=== PATIENT | female | born 1965 | race Caucasian/White ===

== ENCOUNTER 2016-09-02 17:46 | Emergency (ER) | payer OTHER ==
--- NOTE | 2016-09-02 18:43 | DIAGNOSTIC IMAGING REPORT ---
PROCEDURE: XR HAND 3 OR 4 VIEWS - RIGHT INDICATION: TRAUMA/INJURY TECHNIQUE: Four views. COMPARISON: None. FINDINGS: Bandages obscures some of the detail. Allowing for this, osseous structures and joint spaces are normal. IMPRESSION: 1. Negative right hand.
--- NOTE | 2016-09-02 22:34 | ED NURSING NOTES ---
Clinical Report - Nurses [facility] [address] [place] [address] 09/02/2016 17:48 Patient: JYOTI AZUL TRIAGE Acuity: LEVEL 3. Chief Complaint: INJURY TO RIGHT HAND. Alert. No acute distress. SEPSIS SCREEN: Sepsis Screen. Negative (no infection suspected/documented). --17:55 Francesca Napoles R.N. 17:51 09/02/16. BP: 184/106. HR: 64. RR: 24. O2 saturation: 97% on room air. Temp: 97.8 F. Pain level now: 03/26. --17:55 Francesca Napoles R.N. Weight: 58.9 kg stated. Height/Length: 64 inches Per Patient. BMI: 22.3. --17:53 Francesca Napoles R.N. Medications Gabapentin Oral. --17:51 Francesca Napoles R.N. Medication/allergy information source: the patient. --17:55 Francesca Napoles R.N. Allergies Sulfa Antibiotics. --17:51 Francesca Napoles R.N. Red Dye. --17:51 Francesca Napoles R.N. History Arrived by private vehicle. Historian: patient. Accompanied by spouse. This occurred just prior to arrival. Occurred at home. She sustained a laceration (chain saw). Treatment THREAD SINGER: None. PAST MEDICAL HX: Tetanus status: unknown. Immunizations: up-to-date. The patient has had a hysterectomy. SOCIAL HX: Never smoker. Regular alcohol use. No drug use. FALL RISK ASSESSMENT: Fall risk assessment completed. No fall risk identified. NUTRITIONAL RISK ASSESSMENT: The nutritional risk assessment revealed no deficiencies. FUNCTIONAL ASSESSMENT: Functional assessment: no impairments noted. LEARNING NEEDS ASSESSMENT: The learning needs assessment revealed no barriers. SKIN INTEGRITY ASSESSMENT: Skin integrity risk assessment completed. No skin integrity risk identified. --17:55 Francesca Napoles R.N. PROBLEMS: Hypertension. --17:52 Winterer, Francesca, R.N. Assessment GENERAL / NEURO / PSYCH: Alert. Oriented X 4. Appears in no acute distress. Appears in pain and anxious. [place] Coma Scale: 15- eyes open spontaneously (4); best verbal response- oriented x 4 (5); best motor response- obeys commands (6). Patient appears calm and cooperative. RESPIRATORY: Respirations not labored. CVS: Capillary refill less than 2 seconds. GI / : Abdomen soft and nontender. SKIN: Mucous membranes are pink. Skin is warm and dry. --17:55 Francesca Napoles R.N. Interventions ID band on patient. To treatment room. --17:55 Francesca Napoles R.N. PHYSICAL ASSESSMENT 17:56 09/02/16. Ambulatory to room. GENERAL / NEURO / PSYCH: Oriented X 4. Alert. Appears in no acute distress. Appears in pain. EXTREMITIES: Right hand: deep laceration with bleeding localized to the dorsal aspect of the hand. SKIN: Skin is warm and dry. --17:56 Francesca Napoles R.N. NURSING PROGRESS NOTES 17:56 09/02/16. Two patient identifiers checked. Call light placed in reach. Side rails up x 1. Bed placed in lowest position. Brakes of bed on. Patient ready for evaluation- chart flagged and GASOLINE LOCOMOTIVE CRANE OPERATOR notified. --17:56 Francesca Napoles R.N. 18:00 09/02/2016 Site #1 started via IV in the left wrist with an 20g angiocath, with aseptic technique and good blood return; one attempt. Saline lock flushed with 10 mL saline. --18:00 Francesca Napoles R.N. 18:00 09/02/2016 Started bag #1 1000 mL IV Fluids IV NS (Saline); at 1000 mL/hr over 1 hour(s) via site #1 via IV pump. Allergies verified and confirmed 5 rights. IV patency established. IV site checked: no pain, redness, or swelling. IV flushed thoroughly pre- and post-medication administration. --18:00 Francesca Napoles R.N. 18:09/02/2016 Zofran (Ondansetron HCl) IVP 4 mg given over 1 minute(s) via site #1. Allergies verified and confirmed 5 rights. IV patency established. IV site checked: no pain, redness, or swelling. IV flushed thoroughly pre- and post-medication administration. IVP given by RN. --18: Francesca Napoles R.N. 18:09/02/2016 Dilaudid (HYDROmorphone HCl PF) IVP 2 mg given over 2 minute(s) via site #1. Allergies verified, confirmed 5 rights and sedative warning given to the patient. IV patency established. IV site checked: no pain, redness, or swelling. IV flushed thoroughly pre- and post-medication administration. IVP given by RN. --18: Francesca Napoles R.N. 18:22 09/02/2016 TDAP IM 0.5 mL given. (Lot#: [id number], expiration date: 03/24/2018). Given in the left deltoid. Allergies verified and confirmed 5 rights. Vaccine information statement provided to the patient. --18:22 Francesca Napoles R.N. 18:23 09/02/16. field service technician at the patient's bedside. --18:23 Francesca Napoles R.N. 18:35 09/02/2016 Started 1 gm of Ancef (CeFAZolin Sodium) IVPB in bag #1 100 mL; at 150 mL/hr over 20 minute(s) via site #1; Confirmed 5 rights. --18:35 Carmela Ramos R.N. ( Face sheet faxed to [employer]. Imagines pushed to [employer] --18:38 Aura Gil ER Tech1 18:42 09/02/2016 Started 1 gm of Ancef (CeFAZolin Sodium) IVPB in bag #2 100 mL; at 150 mL/hr over 20 minute(s) via site #1; Confirmed 5 rights. --18:42 Carmela Ramos R.N. 18:42 09/02/2016 Ancef IVPB Discontinued: completed. Total amount infused: 100 mL. IV patency established. IV site checked: no pain, redness, or swelling. IV flushed thoroughly. --18:42 Carmela Ramos R.N. 18:57 09/02/2016 Started 3 gm of Unasyn (Ampicillin-Sulbactam Sodium) IVPB in bag #1 100 mL; at 324 mL/hr over 20 minute(s) via site #1 via IV pump. Allergies verified and confirmed 5 rights. IV patency established. IV site checked: no pain, redness, or swelling. IV flushed thoroughly pre- and post-medication administration. --18:57 Francesca Napoles R.N. 18:57 09/02/2016 Ancef IVPB Discontinued: bag #2 infused. Total amount infused: 100 mL. IV patency established. IV site checked: no pain, redness, or swelling. IV flushed thoroughly. --18:57 Francesca Napoles R.N. 18:58 09/02/16. BP: 130/92. HR: 78. RR: 16. O2 saturation: 95% on room air. --18:58 Francesca Napoles R.N. 19:21 09/02/2016 Unasyn IVPB Discontinued: bag #1 infused. Total amount infused: 100 mL. IV patency established. IV site checked: no pain, redness, or swelling. IV flushed thoroughly. --19:21 Francesca Napoles R.N. 19:22 09/02/2016 Started 900 mg of Clindamycin IVPB in bag #1 50 mL; at 100 mL/hr over 30 minute(s) via site #1 via IV pump. Allergies verified and confirmed 5 rights. IV patency established. IV site checked: no pain, redness, or swelling. IV flushed thoroughly pre- and post-medication administration. --19:22 Francesca Napoles R.N. 19:09/02/16. Wound cleansed with sterile water (hand cleaned with water and hibiclens. Wound irrigated with sterile water). Applied clean wet-to-dry (moistened with saline) dressing. Secured with kerlix. --19:31 Francesca Napoles R.N. 20:57 09/02/16. BP: 167/91. HR: 81. RR: 16. O2 saturation: 97% on room air. Pain level now: 12/24. --20:58 Francesca Napoles R.N. 20:58 09/02/16. Family at bedside. --20:58 Francesca Napoles R.N. 22:12 09/02/16. BP: 126/95. HR: 88. RR: 16. O2 saturation: 98%. --22:13 Francesca Napoles R.N. 22:13 09/02/16. The patient is calm and resting quietly and has had no adverse reaction. Overall patient status- she states feels better. --22:13 Francesca Napoles R.N. late entry - 23:00. Applied clean bulky dressing consisting of adaptic and 4x4 gauze, following the application of antibiotic ointment (bacitracin). Secured with tape and kerlix. --23:29 Francesca Napoles R.N. 19:00 09/02/2016 IV Fluids IV NS Discontinued: bag #1 infused. Total amount infused: 1000 mL. IV patency established. IV site checked: no pain, redness, or swelling. IV flushed thoroughly. --23:30 Francesca Napoles R.N. 19:55 09/02/2016 Clindamycin IVPB Discontinued: bag #1 infused. Total amount infused: 50 mL. IV patency established. IV site checked: no pain, redness, or swelling. IV flushed thoroughly. --23:33 Francesca Napoles R.N. 20:15 09/02/2016 Dilaudid (HYDROmorphone HCl PF) IVP 1 mg given over 1 minute(s) via site #1. Allergies verified, confirmed 5 rights and sedative warning given to the patient. IV patency established. IV site checked: no pain, redness, or swelling. IV flushed thoroughly pre- and post-medication administration. IVP given by GASOLINE LOCOMOTIVE CRANE OPERATOR (per VO from GASOLINE LOCOMOTIVE CRANE OPERATOR). --23:32 Francesca Napoles R.N. 22:50 09/02/2016 Dilaudid (HYDROmorphone HCl PF) IVP 1 mg given over 1 minute(s) via site #1. Allergies verified, confirmed 5 rights and sedative warning given to the patient. IV patency established. IV site checked: no pain, redness, or swelling. IV flushed thoroughly pre- and post-medication administration. IVP given by RN (per VO from GASOLINE LOCOMOTIVE CRANE OPERATOR). --23:33 Francesca Napoles R.N. 23:09 09/02/2016 Site #1 removed upon discharge. Catheter intact. Manual pressure and bandage applied. --23:34 Francesca Napoles R.N. DISPOSITION / DISCHARGE Departure time: 23:05 Sep 02 2016. Condition at departure: improved and stable. No learning barriers present. Reviewed medication(s) side effects, precautions, dosing and course information. Prescription(s) given to the patient. Reviewed wound care instructions. Follow up contact number. Patient and spouse verbalized understanding. Written instructions provided in Telugu. The patient was discharged by the nurse practitioner. She was discharged home and accompanied by spouse. She left the Emergency Department ambulatory and via private vehicle. Spouse driving. --23:28 Francesca Napoles R.N. 23:27 09/02/16. BP: 155/76. HR: 90. RR: 18. O2 saturation: 95% on room air. Temp: 98.7 F (oral). Pain level now: 5/10. --23:28 Francesca Napoles R.N. Locked/Released at 09/02/2016 23:35 by Francesca Napoles R.N.
--- NOTE | 2016-09-02 22:34 | ED NURSING NOTES ---
Clinical Report - Nurses [facility] [address] [place] [address] 09/02/2016 17:48 Patient: JYOTI AZUL TRIAGE Acuity: LEVEL 3. Chief Complaint: INJURY TO RIGHT HAND. Alert. No acute distress. SEPSIS SCREEN: Sepsis Screen. Negative (no infection suspected/documented). --17:55 Francesca Napoles R.N. 17:51 09/02/16. BP: 184/106. HR: 64. RR: 24. O2 saturation: 97% on room air. Temp: 97.8 F. Pain level now: 03/26. --17:55 Francesca Napoles R.N. Weight: 58.9 kg stated. Height/Length: 64 inches Per Patient. BMI: 22.3. --17:53 Francesca Napoles R.N. Medications Gabapentin Oral. --17:51 Francesca Napoles R.N. Medication/allergy information source: the patient. --17:55 Francesca Napoles R.N. Allergies Sulfa Antibiotics. --17:51 Francesca Napoles R.N. Red Dye. --17:51 Francesca Napoles R.N. History Arrived by private vehicle. Historian: patient. Accompanied by spouse. This occurred just prior to arrival. Occurred at home. She sustained a laceration (chain saw). Treatment [employer]: None. PAST MEDICAL HX: Tetanus status: unknown. Immunizations: up-to-date. The patient has had a hysterectomy. SOCIAL HX: Never smoker. Regular alcohol use. No drug use. FALL RISK ASSESSMENT: Fall risk assessment completed. No fall risk identified. NUTRITIONAL RISK ASSESSMENT: The nutritional risk assessment revealed no deficiencies. FUNCTIONAL ASSESSMENT: Functional assessment: no impairments noted. LEARNING NEEDS ASSESSMENT: The learning needs assessment revealed no barriers. SKIN INTEGRITY ASSESSMENT: Skin integrity risk assessment completed. No skin integrity risk identified. --17:55 Francesca Napoles R.N. PROBLEMS: Hypertension. --17:52 Winterer, Francesca, R.N. Assessment GENERAL / NEURO / PSYCH: Alert. Oriented X 4. Appears in no acute distress. Appears in pain and anxious. [place] Coma Scale: 15- eyes open spontaneously (4); best verbal response- oriented x 4 (5); best motor response- obeys commands (6). Patient appears calm and cooperative. RESPIRATORY: Respirations not labored. CVS: Capillary refill less than 2 seconds. GI / : Abdomen soft and nontender. SKIN: Mucous membranes are pink. Skin is warm and dry. --17:55 Francesca Napoles R.N. Interventions ID band on patient. To treatment room. --17:55 Francesca Napoles R.N. PHYSICAL ASSESSMENT 17:56 09/02/16. Ambulatory to room. GENERAL / NEURO / PSYCH: Oriented X 4. Alert. Appears in no acute distress. Appears in pain. EXTREMITIES: Right hand: deep laceration with bleeding localized to the dorsal aspect of the hand. SKIN: Skin is warm and dry. --17:56 Francesca Napoles R.N. NURSING PROGRESS NOTES 17:56 09/02/16. Two patient identifiers checked. Call light placed in reach. Side rails up x 1. Bed placed in lowest position. Brakes of bed on. Patient ready for evaluation- chart flagged and MANAGER STORY notified. --17:56 Francesca Napoles R.N. 18:00 09/02/2016 Site #1 started via IV in the left wrist with an 20g angiocath, with aseptic technique and good blood return; one attempt. Saline lock flushed with 10 mL saline. --18:00 Francesca Napoles R.N. 18:00 09/02/2016 Started bag #1 1000 mL IV Fluids IV NS (Saline); at 1000 mL/hr over 1 hour(s) via site #1 via IV pump. Allergies verified and confirmed 5 rights. IV patency established. IV site checked: no pain, redness, or swelling. IV flushed thoroughly pre- and post-medication administration. --18:00 Francesca Napoles R.N. 18:09/02/2016 Zofran (Ondansetron HCl) IVP 4 mg given over 1 minute(s) via site #1. Allergies verified and confirmed 5 rights. IV patency established. IV site checked: no pain, redness, or swelling. IV flushed thoroughly pre- and post-medication administration. IVP given by RN. --18: Francesca Napoles R.N. 18:09/02/2016 Dilaudid (HYDROmorphone HCl PF) IVP 2 mg given over 2 minute(s) via site #1. Allergies verified, confirmed 5 rights and sedative warning given to the patient. IV patency established. IV site checked: no pain, redness, or swelling. IV flushed thoroughly pre- and post-medication administration. IVP given by RN. --18: Francesca Napoles R.N. 18:22 09/02/2016 TDAP IM 0.5 mL given. (Lot#: [id number], expiration date: 03/24/2018). Given in the left deltoid. Allergies verified and confirmed 5 rights. Vaccine information statement provided to the patient. --18:22 Francesca Napoles R.N. 18:23 09/02/16. cytotechnologist at the patient's bedside. --18:23 Francesca Napoles R.N. 18:35 09/02/2016 Started 1 gm of Ancef (CeFAZolin Sodium) IVPB in bag #1 100 mL; at 150 mL/hr over 20 minute(s) via site #1; Confirmed 5 rights. --18:35 Carmela Ramos R.N. ( Face sheet faxed to [employer]. Imagines pushed to [employer] --18:38 Aura Gil ER Tech1 18:42 09/02/2016 Started 1 gm of Ancef (CeFAZolin Sodium) IVPB in bag #2 100 mL; at 150 mL/hr over 20 minute(s) via site #1; Confirmed 5 rights. --18:42 Carmela Ramos R.N. 18:42 09/02/2016 Ancef IVPB Discontinued: completed. Total amount infused: 100 mL. IV patency established. IV site checked: no pain, redness, or swelling. IV flushed thoroughly. --18:42 Carmela Ramos R.N. 18:57 09/02/2016 Started 3 gm of Unasyn (Ampicillin-Sulbactam Sodium) IVPB in bag #1 100 mL; at 324 mL/hr over 20 minute(s) via site #1 via IV pump. Allergies verified and confirmed 5 rights. IV patency established. IV site checked: no pain, redness, or swelling. IV flushed thoroughly pre- and post-medication administration. --18:57 Francesca Napoles R.N. 18:57 09/02/2016 Ancef IVPB Discontinued: bag #2 infused. Total amount infused: 100 mL. IV patency established. IV site checked: no pain, redness, or swelling. IV flushed thoroughly. --18:57 Francesca Napoles R.N. 18:58 09/02/16. BP: 130/92. HR: 78. RR: 16. O2 saturation: 95% on room air. --18:58 Francesca Napoles R.N. 19:21 09/02/2016 Unasyn IVPB Discontinued: bag #1 infused. Total amount infused: 100 mL. IV patency established. IV site checked: no pain, redness, or swelling. IV flushed thoroughly. --19:21 Francesca Napoles R.N. 19:22 09/02/2016 Started 900 mg of Clindamycin IVPB in bag #1 50 mL; at 100 mL/hr over 30 minute(s) via site #1 via IV pump. Allergies verified and confirmed 5 rights. IV patency established. IV site checked: no pain, redness, or swelling. IV flushed thoroughly pre- and post-medication administration. --19:22 Francesca Napoles R.N. 19:09/02/16. Wound cleansed with sterile water (hand cleaned with water and hibiclens. Wound irrigated with sterile water). Applied clean wet-to-dry (moistened with saline) dressing. Secured with kerlix. --19:31 Francesca Napoles R.N. 20:57 09/02/16. BP: 167/91. HR: 81. RR: 16. O2 saturation: 97% on room air. Pain level now: 12/24. --20:58 Francesca Napoles R.N. 20:58 09/02/16. Family at bedside. --20:58 Francesca Napoles R.N. 22:12 09/02/16. BP: 126/95. HR: 88. RR: 16. O2 saturation: 98%. --22:13 Francesca Napoles R.N. 22:13 09/02/16. The patient is calm and resting quietly and has had no adverse reaction. Overall patient status- she states feels better. --22:13 Francesca Napoles R.N. late entry - 23:00. Applied clean bulky dressing consisting of adaptic and 4x4 gauze, following the application of antibiotic ointment (bacitracin). Secured with tape and kerlix. --23:29 Francesca Napoles R.N. 19:00 09/02/2016 IV Fluids IV NS Discontinued: bag #1 infused. Total amount infused: 1000 mL. IV patency established. IV site checked: no pain, redness, or swelling. IV flushed thoroughly. --23:30 Francesca Napoles R.N. 19:55 09/02/2016 Clindamycin IVPB Discontinued: bag #1 infused. Total amount infused: 50 mL. IV patency established. IV site checked: no pain, redness, or swelling. IV flushed thoroughly. --23:33 Francesca Napoles R.N. 20:15 09/02/2016 Dilaudid (HYDROmorphone HCl PF) IVP 1 mg given over 1 minute(s) via site #1. Allergies verified, confirmed 5 rights and sedative warning given to the patient. IV patency established. IV site checked: no pain, redness, or swelling. IV flushed thoroughly pre- and post-medication administration. IVP given by MANAGER STORY (per VO from MANAGER STORY). --23:32 Francesca Napoles R.N. 22:50 09/02/2016 Dilaudid (HYDROmorphone HCl PF) IVP 1 mg given over 1 minute(s) via site #1. Allergies verified, confirmed 5 rights and sedative warning given to the patient. IV patency established. IV site checked: no pain, redness, or swelling. IV flushed thoroughly pre- and post-medication administration. IVP given by RN (per VO from MANAGER STORY). --23:33 Francesca Napoles R.N. 23:09 09/02/2016 Site #1 removed upon discharge. Catheter intact. Manual pressure and bandage applied. --23:34 Francesca Napoles R.N. DISPOSITION / DISCHARGE Departure time: 23:05 Sep 02 2016. Condition at departure: improved and stable. No learning barriers present. Reviewed medication(s) side effects, precautions, dosing and course information. Prescription(s) given to the patient. Reviewed wound care instructions. Follow up contact number. Patient and spouse verbalized understanding. Written instructions provided in Latvian. The patient was discharged by the nurse practitioner. She was discharged home and accompanied by spouse. She left the Emergency Department ambulatory and via private vehicle. Spouse driving. --23:28 Francesca Napoles R.N. 23:27 09/02/16. BP: 155/76. HR: 90. RR: 18. O2 saturation: 95% on room air. Temp: 98.7 F (oral). Pain level now: 5/10. --23:28 Francesca Napoles R.N. Locked/Released at 09/02/2016 23:35 by Francesca Napoles R.N.
--- NOTE | 2016-09-02 22:34 | ED CLINICAL REPORT ---
Clinical Report - Physicians/Mid Levels [facility] [address] [place] [address] 09/02/2016 17:48 Patient: JYOTI AZUL Time Seen: 17:54; upon arrival, initial patient contact, initial documentation, patient care assumed. Arrived- By private vehicle. Historian- patient and spouse. HISTORY OF PRESENT ILLNESS Chief Complaint: Injury to the right hand. The injury happened just prior to arrival. Occurred at home. The patient sustained a laceration from a power tool (chain saw). Patient is experiencing severe pain. Patient denies injury to the head or neck. No other injury. ( in chicken coop, doing repair with spouse and hand got caught by chainsaw, pt and spouse are covered in manure, pt also wearing rubber and nylon gloves, pt was holding rubber mat that spouse was using chain saw to cut when her hand got cut). REVIEW OF SYSTEMS The patient sustained a laceration. Foreign body is suspected. She has had numbness. No swelling, tingling or weakness. All systems otherwise negative, except as recorded above. PAST HISTORY See nurses notes. PROBLEMS: Hypertension. --17:52 Francesca Napoles R.N. The patient's dominant hand is the right. Tetanus immunization status is unknown. Surgeries: Had hysterectomy. SOCIAL HISTORY Never smoker. Regular alcohol use. No drug use. No recent travel. Is a local resident. She lives with spouse. FAMILY HISTORY No significant family medical history. ADDITIONAL NOTES The nursing notes have been reviewed with agreement regarding the chief complaint, HPI, ROS, PMH and patient medications and allergies. PHYSICAL EXAM Vital Signs: 09/02/2016 17:51 BP: 184/106. HR: 64. RR: 24. O2 saturation: 97%. Temp: 97.8 F. Pain level now: 10/10. Have been reviewed as abnormal and appear to be correct. Hypertensive. Heart rate normal. Respiratory rate normal. Temperature normal. Oxygen saturation normal. Appearance: Alert. Oriented X3. No acute distress. Head: Head atraumatic. Eyes: Pupils equal, round and reactive to light. Eyes normal inspection. Respiratory: No respiratory distress. Skin: Skin warm and dry. Skin intact. Extremities: Hand injury present. Dorsal right hand: severe tenderness and deep 5.0 cm laceration of the ulnar aspect of the dorsal hand. SEE LACERATION PROCEDURE NOTE #1. Limited extension of the ring and little finger (pt's digits numb, can't feel me touching, and ? flexor tendon injury, pt unable to flex finger, and limited extension due to pain). No erythema, swelling, abrasion, ecchymosis or puncture wound. No foreign body or deformity. Neurovascular not intact distally. Right middle finger: mild tenderness and subcutaneous 1.0 cm laceration of the dorsal aspect and middle phalanx- SEE LACERATION PROCEDURE NOTE #2; limited movement secondary to pain (diminished flexion). Neurovascular intact distally. No erythema, swelling, abrasion, ecchymosis or puncture wound. No foreign body or deformity. No subungual hematoma or amputation present. (lac is longitudal across dorsal hand in between 4th and 5th metacarpals with active bleeding, serrated edges and flaps of skin hanging, some skin missed and totally avulsed, one tendon visualized and unable to tell if that particular one was injured or severed with active bleeding). No wrist injury. Hand and wrist exam otherwise negative. Extremities otherwise negative. Neuro, Vascular and Tendons: Vascular status intact. Sensation intact. Motor intact. Tendon function intact. Neuro: Oriented X 3. No motor deficit. No sensory deficit. Note: isolated injury to hand, pt extremely dirty, covered in manure. LABS, X-RAYS, AND EKG X-Rays: Left hand negative. Lt Hand X-ray: (IMPRESSION: 1. Negative right hand. Electronically Final signed by:Matthias Whitten MD 09/02/2016 6:40:23 PM). The X-rays were interpreted by the radiologist and contemporaneously by me. PROGRESS AND PROCEDURES Laceration Repair: Location: right hand. Length: 5 cm. Complexity: complex (requiring alignment of multiple flaps and revision of wound margins), intermediate (single layer closure with heavy contamination and requiring extensive irrigation and cleaning) and simple (local anesthesia used and sutured). Wound depth/shape- subcutaneous and irregular and involving fascia. Contamination present and foreign body present. It is not clean. No contused tissue present. Tissue loss present. Exam note: wound had manure, and potentially rubber particles in it. Neuro/vascular/tendon status: sensory deficit present distally. Tendon examined. Tendon deficit present. Tendon injury present. (tips of 4&5 digits numb). No tendon laceration. Local anesthesia provided using 1% lidocaine. Prepped with Betadine and Hibiclens. Wound prep- scrubbed with hibiclens sponge. Wound explored, cleansed and irrigated extensively with normal saline. Wound not debrided or examined to the base in bloodless field. irrigated with 1L NS. Closure of skin: interrupted 3-0 and 4-0 (13 sutures total, 2 sutures were done with 3.0, rest (11) done with 4.0). Post-procedure: she is stable and there are no complications. Bleeding is controlled and neuro-vascular status is intact distal to the wound. Dressing applied. (per tech or nurse, see other notes). Tetanus immunization given. Estimated blood loss: 30 mL. Laceration Repair #2: Location: right middle finger. Length: 1.5cm. Complexity: simple (local anesthesia used and sutured). Wound depth/shape- subcutaneous and linear and involving fascia. Contamination present. Exam note: same as other lac. Distal neuro/vascular/tendon status normal. Tendon not examined. No tendon deficit or laceration or tendon injury. Local anesthesia provided using 1% lidocaine (2 mL). Prepped with Betadine and Hibiclens. Wound explored, cleansed, irrigated and examined to the base in bloodless field extensively with normal saline. Closure of skin: 4-0 (3 sutures). Post-procedure: she is stable and there are no complications. Bleeding is controlled and neuro-vascular status is intact distal to the wound. Dressing applied. (per nurse or tech, see other notes). Estimated blood loss: 5 mL. ( cleaned same way as other lac 1). Course of Care: 1809. hand anesthesized with [place] 1% plain, lab at bedside had tech irrigate wounds with NS, hibiclens and clean arm and wounds out, after soaking in NS, wounds were dressed with big bulky wet to dry with ns 1824. Spoke to Dr Lee, ortho, at [facility], pt's case reviewed, thought best tx for pt would be hand specialist at [facility], discussed which abx to give 1839. spoke to Leann at [facility], pt's case reviewed and she would get Ortho Hand and call me back 1845. Spoke to Dr Escudero, Ortho Hand at [facility], pt's case discussed, him informing me that if the wound is dorsal side of hand only with no bone involvement, that our ortho person could clean it, irrigate it and do repair here, and I could do it in ER, stressed concerns of contamination of manure, chicken, goat, horse, pig and glove (rubber and nylon) and rubber (pt holding rubber mat that was being cut by [employer]) material and needing better clean out, he refused to take pt unless our Ortho person, examined pt in person, explained our Ortho was in operating room in case, I spoke to our affiliated hospital, [facility] to Ortho decontamination technician there, and the 2nd ortho was not comfortable either, stating his specialty was joints and if it was hand, and this contaminated he felt hand specialist should do it, he still declined transfer, stating our ortho needed to look at it first before he would accept, or I could do closure and clean it our in ER and send pt to him or another hand surgeon for f/u 18:59 09/02/16. called OR, Dr Longoria still in case, spoke to RN, informed her of what was going on, and that I would need him to take a look at pt when he was done with his case 1919. pt informed of delay of transfer due to awaiting our ortho to exam pt before [facility] will accept wounds being irrigated with ns by tech pt still unable to flex fingers, still concern there is flexor tendon injury, Dr. Escudero informed me that it is highly unlikely there is flexor tendon injury without bone involvement being a dorsal cut, but pt still unable to flex digits, skin avulsion present, wound edges serrated 1999. having charge nurse call [facility] to try and get update on OR case 2009. converting supervisor Agustín here, aware of needing Dr Longoria when he is finished in OR for pt eval 2014. Dr Shirley updated with attempt to transfer and pt status 2039. Dr Longoria called back, from OR, will be in OR for few more hours yet, not happy that Hand Ortho will not take pt, asked that I call them back, again, and demand that they take this pt, that care is being delayed because some Dr chapin is refusing to take the pt having tray setter call [facility] again 2114. Spoke to Ortho Hand at [facility], Dr Moe, who stated he was not going to do a tendon repair if it needed stat, and with that type of wound contamination, to either close the wound here and see hand tomorrow in office, or call [facility] back, that they were the better facility to go to with Hand specialists 2124. on phone with Tati CROCKER at [facility], given pt's case, and she said she would get the hand ortho a call, he usually answers back quickly, asked who it was, Dr Escudero, told her Dr Escudero already declined my pt until Ortho here saw pt, but Ortho was still busy in OR case, she put me on hold to wait for Dr Escudero to call, waited 3-5 min, no one answering, got frustrated so I hung up 2134. informed pt of delays, not being able to get a hand surgeon to accept, our Ortho still in OR, explained to pt that I could do partial closure or temp fix of hand for now, but pt would need to f/u first thing am with hand surgeon, and to not to call them but go straight to their office, pt agreed, pt tired of waiting. pt still unable to flex digits 4&5. 09/02/2016 18:58 BP: 130/92. HR: 78. RR: 16. O2 saturation: 95%. Vital Signs: have been reviewed as normal and appear to be correct. Critical care performed (60 minutes). Time includes: direct patient care, patient reassessment, coordination of patient care, medical consultation and documentation of patient care- see progress notes. Procedures excluded from critical care time- see progress notes. Discussed case with on-call health care provider, (call returned 1817 reviewed pt's case, agreed that pt needs higher level of care with hand ortho). Agreed upon treatment plan. Patient and spouse counseled in person regarding the patient's stable condition, test results and diagnosis. Differential Diagnosis: Other possible considerations: open fx, tendon/ligament injury, lac, fb. Above considerations are based on history, physical exam and X-Ray data. Differential diagnosis was discussed with patient and patient's spouse. Disposition: Discharged home in good and improved condition. Condition: good and stable. CLINICAL IMPRESSION Single deep laceration to the right hand and right middle finger. Foreign body present. Complicated repair. Treatment of laceration not delayed. No infection. Partial laceration of the right flexor tendon of the hand, fourth finger and fifth finger. The injury location is the right hand. Foreign body present. No infection present. INSTRUCTIONS Elevate affected areas above chest level (tonight). Protect wound and keep wound area clean. Leave dressing in place until seen in follow-up. ([place] Office Info - Hand Dr. Walter Moe Phone Numbers Clinic Hours Saturday through , 8:00 a.m. to 5:00 p.m. Saturday, 8:00 a.m. to 4:00 p.m. [place] Address [address] [place] [address], [address] [place], [place] [address] Or [facility] at [address], [address], [place] [address] ). Warnings: COMPLICATIONS: Complications from this condition include: possible infection, possible injury to a nerve, possible injury to a tendon and possible injury to a ligament. Future problems may include infection, loss of function, pain and deformity. INFECTION: Watch for signs of infection (increasing heat and redness, pus-like drainage, swelling, or increased pain). Return or see your doctor if these signs occur. It is important to follow up with a physician for further evaluation and treatment. GENERAL WARNINGS: Return or contact your physician immediately if your condition worsens or changes unexpectedly, if not improving as expected, or if other problems arise. Specifically return if problem worsens. Prescription Medications: Zofran 4 mg: Take 1 orally every six hours as needed for nausea/vomiting. Dispense ten (10). No refills. Substitution is permissible. Cephalexin 500mg: take 1 tab orally every 6 hours for 7 days. No refills [place] 5 mg / 325 mg tablets: take 1 to 2 orally every 6 hours as needed for pain. Dispense fifteen (15). No refills. Substitution is permissible. Motrin 800 mg tablets: take 1 tablet orally every 8 hours as needed for pain. Dispense thirty (30). No refills. Substitution is permissible. Clindamycin 150 mg: take 1 capsule orally every 12 hours for 7 days. No refill. Penicillin V 500 mg: take 1 tab orally every 12 hours for 7 days. Dispense fifteen (15). No refills. Diflucan 150 mg tablet: take 1 tablet orally today. No refills. Substitution is permissible. Understanding of the discharge instructions verbalized by patient. Follow-up with: Aiden Patel MD, Orthopedic Surgeon, , [address], , [place], [id number] Follow up tomorrow even if well. Reason for referral: go straight to office. Summary of care provided to patient and family. (Electronically signed by Grace Gaston A.R.N.P. 09/03/2016 0:14)
--- NOTE | 2016-09-02 22:34 | ED ORDER SUMMARY ---
..... Patient: JYOTI AZUL OrderSheet [facility] VisitID: [id number] [place] [address] 51y, F Registration Date/Time: 09/02/2016 ORDER SHEET Weight: 58.9 kg (stated) Allergies: Sulfa Antibiotics, Red Dye GENERAL ORDERS: CBC w Diff Urgent (17:59 09/02/2016 HBivens A.R.N.P.) (Ack 18:00 LNations ER Tech1) (18:17 MWinterer R.N.) CMP Urgent (17:59 09/02/2016 HBivens A.R.N.P.) (Ack 18:00 LNations ER Tech1) (18:17 MWinterer R.N.) Hand 3 or 4V Right Urgent (17:59 09/02/2016 HBivens A.R.N.P.) (Ack 18:01 LNations ER Tech1) (18:37 MWinterer R.N.) MEDICATION ORDERS: Tdap IM 0.5 mL (NOW, per protocol) (18:00 09/02/2016 HBivens A.R.N.P.) (Ack 18:02 MWinterer R.N.) (18:22 MWinterer R.N.) Unasyn IV 3 gm/100mL (NOW) (18:30 09/02/2016 HBivens A.R.N.P.) (Ack 18:33 MWinterer R.N.) (18:57 MWinterer R.N.) IV FLUIDS: IV NS : initial bolus 1000 mL (1000 mL/hr), then none - (NOW) (17:58 09/02/2016 HBivens A.R.N.P.) (18:00 MWinterer R.N.) Dilaudid IV 2 mg (HIGH ALERT MEDICATION, NOW) (17:58 09/02/2016 HBivens A.R.N.P.) (18:01 MWinterer R.N.) Zofran IV 4 mg (NOW) (17:59 09/02/2016 HBivens A.R.N.P.) (18:01 MWinterer R.N.) IV Saline Lock (17:59 09/02/2016 HBivens A.R.N.P.) (18:00 MWinterer R.N.) Ancef IV 2 gm/100mL (NOW) (18:30 09/02/2016 HBivens A.R.N.P.) (Ack 18:33 MWinterer R.N.) (18:35 LSullivan R.N.) Clindamycin IV 900 mg/50mL (NOW) (18:30 09/02/2016 HBivens A.R.N.P.) (Ack 18:33 MWinterer R.N.) (19:22 MWinterer R.N.) ORDER SHEET NOTES: [Electronically signed by Francesca Napoles R.N. (23:35 09/02/2016)] [Electronically signed by Grace GastonR.N.P. (00:14 09/03/2016)] [Electronically locked/signed by Francesca Napoles R.N. (23:35 09/02/2016)]
--- NOTE | 2016-09-02 22:34 | ED ORDER SUMMARY ---
..... Patient: JYOTI AZUL OrderSheet [facility] VisitID: [id number] [place] [address] 51y, F Registration Date/Time: 09/02/2016 ORDER SHEET Weight: 58.9 kg (stated) Allergies: Sulfa Antibiotics, Red Dye GENERAL ORDERS: CBC w Diff Urgent (17:59 09/02/2016 HBivens A.R.N.P.) (Ack 18:00 LNations ER Tech1) (18:17 MWinterer R.N.) CMP Urgent (17:59 09/02/2016 HBivens A.R.N.P.) (Ack 18:00 LNations ER Tech1) (18:17 MWinterer R.N.) Hand 3 or 4V Right Urgent (17:59 09/02/2016 HBivens A.R.N.P.) (Ack 18:01 LNations ER Tech1) (18:37 MWinterer R.N.) MEDICATION ORDERS: Tdap IM 0.5 mL (NOW, per protocol) (18:00 09/02/2016 HBivens A.R.N.P.) (Ack 18:02 MWinterer R.N.) (18:22 MWinterer R.N.) Unasyn IV 3 gm/100mL (NOW) (18:30 09/02/2016 HBivens A.R.N.P.) (Ack 18:33 MWinterer R.N.) (18:57 MWinterer R.N.) IV FLUIDS: IV NS : initial bolus 1000 mL (1000 mL/hr), then none - (NOW) (17:58 09/02/2016 HBivens A.R.N.P.) (18:00 MWinterer R.N.) Dilaudid IV 2 mg (HIGH ALERT MEDICATION, NOW) (17:58 09/02/2016 HBivens A.R.N.P.) (18:01 MWinterer R.N.) Zofran IV 4 mg (NOW) (17:59 09/02/2016 HBivens A.R.N.P.) (18:01 MWinterer R.N.) IV Saline Lock (17:59 09/02/2016 HBivens A.R.N.P.) (18:00 MWinterer R.N.) Ancef IV 2 gm/100mL (NOW) (18:30 09/02/2016 HBivens A.R.N.P.) (Ack 18:33 MWinterer R.N.) (18:35 LSullivan R.N.) Clindamycin IV 900 mg/50mL (NOW) (18:30 09/02/2016 HBivens A.R.N.P.) (Ack 18:33 MWinterer R.N.) (19:22 MWinterer R.N.) ORDER SHEET NOTES: [Electronically signed by Francesca Napoles R.N. (23:35 09/02/2016)] [Electronically signed by Grace GastonR.N.P. (00:14 09/03/2016)] [Electronically locked/signed by Francesca Napoles R.N. (23:35 09/02/2016)]
--- NOTE | 2016-09-02 22:34 | ED CLINICAL REPORT ---
Clinical Report - Physicians/Mid Levels [facility] [address] [place] [address] 09/02/2016 17:48 Patient: JYOTI AZUL Time Seen: 17:54; upon arrival, initial patient contact, initial documentation, patient care assumed. Arrived- By private vehicle. Historian- patient and spouse. HISTORY OF PRESENT ILLNESS Chief Complaint: Injury to the right hand. The injury happened just prior to arrival. Occurred at home. The patient sustained a laceration from a power tool (chain saw). Patient is experiencing severe pain. Patient denies injury to the head or neck. No other injury. ( in chicken coop, doing repair with spouse and hand got caught by chainsaw, pt and spouse are covered in manure, pt also wearing rubber and nylon gloves, pt was holding rubber mat that spouse was using chain saw to cut when her hand got cut). REVIEW OF SYSTEMS The patient sustained a laceration. Foreign body is suspected. She has had numbness. No swelling, tingling or weakness. All systems otherwise negative, except as recorded above. PAST HISTORY See nurses notes. PROBLEMS: Hypertension. --17:52 Francesca Napoles R.N. The patient's dominant hand is the right. Tetanus immunization status is unknown. Surgeries: Had hysterectomy. SOCIAL HISTORY Never smoker. Regular alcohol use. No drug use. No recent travel. Is a local resident. She lives with spouse. FAMILY HISTORY No significant family medical history. ADDITIONAL NOTES The nursing notes have been reviewed with agreement regarding the chief complaint, HPI, ROS, PMH and patient medications and allergies. PHYSICAL EXAM Vital Signs: 09/02/2016 17:51 BP: 184/106. HR: 64. RR: 24. O2 saturation: 97%. Temp: 97.8 F. Pain level now: 10/10. Have been reviewed as abnormal and appear to be correct. Hypertensive. Heart rate normal. Respiratory rate normal. Temperature normal. Oxygen saturation normal. Appearance: Alert. Oriented X3. No acute distress. Head: Head atraumatic. Eyes: Pupils equal, round and reactive to light. Eyes normal inspection. Respiratory: No respiratory distress. Skin: Skin warm and dry. Skin intact. Extremities: Hand injury present. Dorsal right hand: severe tenderness and deep 5.0 cm laceration of the ulnar aspect of the dorsal hand. SEE LACERATION PROCEDURE NOTE #1. Limited extension of the ring and little finger (pt's digits numb, can't feel me touching, and ? flexor tendon injury, pt unable to flex finger, and limited extension due to pain). No erythema, swelling, abrasion, ecchymosis or puncture wound. No foreign body or deformity. Neurovascular not intact distally. Right middle finger: mild tenderness and subcutaneous 1.0 cm laceration of the dorsal aspect and middle phalanx- SEE LACERATION PROCEDURE NOTE #2; limited movement secondary to pain (diminished flexion). Neurovascular intact distally. No erythema, swelling, abrasion, ecchymosis or puncture wound. No foreign body or deformity. No subungual hematoma or amputation present. (lac is longitudal across dorsal hand in between 4th and 5th metacarpals with active bleeding, serrated edges and flaps of skin hanging, some skin missed and totally avulsed, one tendon visualized and unable to tell if that particular one was injured or severed with active bleeding). No wrist injury. Hand and wrist exam otherwise negative. Extremities otherwise negative. Neuro, Vascular and Tendons: Vascular status intact. Sensation intact. Motor intact. Tendon function intact. Neuro: Oriented X 3. No motor deficit. No sensory deficit. Note: isolated injury to hand, pt extremely dirty, covered in manure. LABS, X-RAYS, AND EKG X-Rays: Left hand negative. Lt Hand X-ray: (IMPRESSION: 1. Negative right hand. Electronically Final signed by:Matthias Whitten MD 09/02/2016 6:40:23 PM). The X-rays were interpreted by the radiologist and contemporaneously by me. PROGRESS AND PROCEDURES Laceration Repair: Location: right hand. Length: 5 cm. Complexity: complex (requiring alignment of multiple flaps and revision of wound margins), intermediate (single layer closure with heavy contamination and requiring extensive irrigation and cleaning) and simple (local anesthesia used and sutured). Wound depth/shape- subcutaneous and irregular and involving fascia. Contamination present and foreign body present. It is not clean. No contused tissue present. Tissue loss present. Exam note: wound had manure, and potentially rubber particles in it. Neuro/vascular/tendon status: sensory deficit present distally. Tendon examined. Tendon deficit present. Tendon injury present. (tips of 4&5 digits numb). No tendon laceration. Local anesthesia provided using 1% lidocaine. Prepped with Betadine and Hibiclens. Wound prep- scrubbed with hibiclens sponge. Wound explored, cleansed and irrigated extensively with normal saline. Wound not debrided or examined to the base in bloodless field. irrigated with 1L NS. Closure of skin: interrupted 3-0 and 4-0 (13 sutures total, 2 sutures were done with 3.0, rest (11) done with 4.0). Post-procedure: she is stable and there are no complications. Bleeding is controlled and neuro-vascular status is intact distal to the wound. Dressing applied. (per tech or nurse, see other notes). Tetanus immunization given. Estimated blood loss: 30 mL. Laceration Repair #2: Location: right middle finger. Length: 1.5cm. Complexity: simple (local anesthesia used and sutured). Wound depth/shape- subcutaneous and linear and involving fascia. Contamination present. Exam note: same as other lac. Distal neuro/vascular/tendon status normal. Tendon not examined. No tendon deficit or laceration or tendon injury. Local anesthesia provided using 1% lidocaine (2 mL). Prepped with Betadine and Hibiclens. Wound explored, cleansed, irrigated and examined to the base in bloodless field extensively with normal saline. Closure of skin: 4-0 (3 sutures). Post-procedure: she is stable and there are no complications. Bleeding is controlled and neuro-vascular status is intact distal to the wound. Dressing applied. (per nurse or tech, see other notes). Estimated blood loss: 5 mL. ( cleaned same way as other lac 1). Course of Care: 1809. hand anesthesized with Lido 1% plain, lab at bedside had tech irrigate wounds with NS, hibiclens and clean arm and wounds out, after soaking in NS, wounds were dressed with big bulky wet to dry with ns 1824. Spoke to Dr Lee, ortho, at [facility], pt's case reviewed, thought best tx for pt would be hand specialist at [facility], discussed which abx to give 1839. spoke to Leann at [facility], pt's case reviewed and she would get Ortho Hand and call me back 1845. Spoke to Dr Escudero, Ortho Hand at [facility], pt's case discussed, him informing me that if the wound is dorsal side of hand only with no bone involvement, that our ortho person could clean it, irrigate it and do repair here, and I could do it in ER, stressed concerns of contamination of manure, chicken, goat, horse, pig and glove (rubber and nylon) and rubber (pt holding rubber mat that was being cut by [employer]) material and needing better clean out, he refused to take pt unless our Ortho person, examined pt in person, explained our Ortho was in operating room in case, I spoke to our affiliated hospital, [facility] to Ortho electronic health records specialist there, and the 2nd ortho was not comfortable either, stating his specialty was joints and if it was hand, and this contaminated he felt hand specialist should do it, he still declined transfer, stating our ortho needed to look at it first before he would accept, or I could do closure and clean it our in ER and send pt to him or another hand surgeon for f/u 18:59 09/02/16. called OR, Dr Longoria still in case, spoke to RN, informed her of what was going on, and that I would need him to take a look at pt when he was done with his case 1919. pt informed of delay of transfer due to awaiting our ortho to exam pt before [facility] will accept wounds being irrigated with ns by tech pt still unable to flex fingers, still concern there is flexor tendon injury, Dr. Escudero informed me that it is highly unlikely there is flexor tendon injury without bone involvement being a dorsal cut, but pt still unable to flex digits, skin avulsion present, wound edges serrated 1999. having charge nurse call Personnel Assistant to try and get update on OR case 2009. rubber compounder supervisor Agustín here, aware of needing Dr Longoria when he is finished in OR for pt eval 2014. Dr hSirley updated with attempt to transfer and pt status 2039. Dr Longoria called back, from OR, will be in OR for few more hours yet, not happy that Hand Ortho will not take pt, asked that I call them back, again, and demand that they take this pt, that care is being delayed because some Dr chapin is refusing to take the pt having identification technician call [facility] again 2114. Spoke to Ortho Hand at [facility], Dr Moe, who stated he was not going to do a tendon repair if it needed stat, and with that type of wound contamination, to either close the wound here and see hand tomorrow in office, or call [facility] back, that they were the better facility to go to with Hand specialists 2124. on phone with Tati CROCKER at [facility], given pt's case, and she said she would get the hand ortho a call, he usually answers back quickly, asked who it was, Dr Escudero, told her Dr Escudero already declined my pt until Ortho here saw pt, but Ortho was still busy in OR case, she put me on hold to wait for Dr Escudero to call, waited 3-5 min, no one answering, got frustrated so I hung up 2134. informed pt of delays, not being able to get a hand surgeon to accept, our Ortho still in OR, explained to pt that I could do partial closure or temp fix of hand for now, but pt would need to f/u first thing am with hand surgeon, and to not to call them but go straight to their office, pt agreed, pt tired of waiting. pt still unable to flex digits 4&5. 09/02/2016 18:58 BP: 130/92. HR: 78. RR: 16. O2 saturation: 95%. Vital Signs: have been reviewed as normal and appear to be correct. Critical care performed (60 minutes). Time includes: direct patient care, patient reassessment, coordination of patient care, medical consultation and documentation of patient care- see progress notes. Procedures excluded from critical care time- see progress notes. Discussed case with on-call health care provider, (call returned 1817 reviewed pt's case, agreed that pt needs higher level of care with hand ortho). Agreed upon treatment plan. Patient and spouse counseled in person regarding the patient's stable condition, test results and diagnosis. Differential Diagnosis: Other possible considerations: open fx, tendon/ligament injury, lac, fb. Above considerations are based on history, physical exam and X-Ray data. Differential diagnosis was discussed with patient and patient's spouse. Disposition: Discharged home in good and improved condition. Condition: good and stable. CLINICAL IMPRESSION Single deep laceration to the right hand and right middle finger. Foreign body present. Complicated repair. Treatment of laceration not delayed. No infection. Partial laceration of the right flexor tendon of the hand, fourth finger and fifth finger. The injury location is the right hand. Foreign body present. No infection present. INSTRUCTIONS Elevate affected areas above chest level (tonight). Protect wound and keep wound area clean. Leave dressing in place until seen in follow-up. ([facility] Office Info - Hand Dr. Walter Moe Phone Numbers Clinic Hours Saturday through , 8:00 a.m. to 5:00 p.m. Saturday, 8:00 a.m. to 4:00 p.m. [facility] Address [address] [place] [address], [address] [place], [place] [address] Or [facility] at [address], [address], [place] [address] ). Warnings: COMPLICATIONS: Complications from this condition include: possible infection, possible injury to a nerve, possible injury to a tendon and possible injury to a ligament. Future problems may include infection, loss of function, pain and deformity. INFECTION: Watch for signs of infection (increasing heat and redness, pus-like drainage, swelling, or increased pain). Return or see your doctor if these signs occur. It is important to follow up with a physician for further evaluation and treatment. GENERAL WARNINGS: Return or contact your physician immediately if your condition worsens or changes unexpectedly, if not improving as expected, or if other problems arise. Specifically return if problem worsens. Prescription Medications: Zofran 4 mg: Take 1 orally every six hours as needed for nausea/vomiting. Dispense ten (10). No refills. Substitution is permissible. Cephalexin 500mg: take 1 tab orally every 6 hours for 7 days. No refills Norwood 5 mg / 325 mg tablets: take 1 to 2 orally every 6 hours as needed for pain. Dispense fifteen (15). No refills. Substitution is permissible. Motrin 800 mg tablets: take 1 tablet orally every 8 hours as needed for pain. Dispense thirty (30). No refills. Substitution is permissible. Clindamycin 150 mg: take 1 capsule orally every 12 hours for 7 days. No refill. Penicillin V 500 mg: take 1 tab orally every 12 hours for 7 days. Dispense fifteen (15). No refills. Diflucan 150 mg tablet: take 1 tablet orally today. No refills. Substitution is permissible. Understanding of the discharge instructions verbalized by patient. Follow-up with: Aiden Patel MD, Orthopedic Surgeon, , [id number], , [place], [id number] Follow up tomorrow even if well. Reason for referral: go straight to office. Summary of care provided to patient and family. (Electronically signed by Grace Gaston A.R.N.P. 09/03/2016 0:14)
--- NOTE | 2016-09-03 00:15 | ED MAR SUMMARY ---
..... Medication Administration Record [facility] [address] [place] [address] Patient: JYOTI AZUL Visit ID: [id number] 51y, F Weight: 58.9 kg Height/Length: 64 in BMI: 22.3 ALLERGIES: Red Dye, Sulfa Antibiotics Start 18:00 09/02/2016 Francesca Napoles R.N., Stop 19:09/02/2016 Francesca Napoles R.N. Medication Administered: IV NS (SALINE), Dose: IV Fluids over 1 hour(s), Rate: 1000 mL/hr, Dispensed: 1000 mL bag, Site: #1 left wrist. Medication Ordered: IV NS : initial bolus 1000 mL (1000 mL/hr), then none - (NOW). Given 18:09/02/2016 Francesca Napoles R.N. Medication Administered: DILAUDID [IVP] (HYDROMORPHONE HCL PF), Dose: 2 mg IVP over 2 minute(s), Site: #1 left wrist. Medication Ordered: Dilaudid IV 2 mg (HIGH ALERT MEDICATION, NOW). Given 18:09/02/2016 Francesca Napoles R.N. Medication Administered: ZOFRAN [IVP] (ONDANSETRON HCL), Dose: 4 mg IVP over 1 minute(s), Site: #1 left wrist. Medication Ordered: Zofran IV 4 mg (NOW). Given 18:09/02/2016 Francesca Napoles R.N. Medication Administered: TDAP [IM], Dose: 0.5 mL IM. Medication Ordered: Tdap IM 0.5 mL (NOW, per protocol). Start 18:35 09/02/2016 Carmela Ramos R.N., Stop 18:42 09/02/2016 Carmela Ramos R.N. Medication Administered: ANCEF [IVPB] (CEFAZOLIN SODIUM), Dose: 1 gm IVPB over 20 minute(s), Rate: 150 mL/hr, Dispensed: 100 mL bag, Site: #1 left wrist. Medication Ordered: Ancef IV 2 gm/100mL (NOW). Start 18:42 09/02/2016 Carmela Ramos R.N., Stop 18:57 09/02/2016 Francesca Napoles R.N. Medication Administered: ANCEF [IVPB] (CEFAZOLIN SODIUM), Dose: 1 gm IVPB over 20 minute(s), Rate: 150 mL/hr, Dispensed: 100 mL bag, Site: #1 left wrist. Medication Ordered: Ancef IV 2 gm/100mL (NOW). Start 18:57 09/02/2016 Francesca Napoles R.N., Stop 19:21 09/02/2016 Francesca Napoles R.N. Medication Administered: UNASYN [IVPB] (AMPICILLIN-SULBACTAM SODIUM), Dose: 3 gm IVPB over 20 minute(s), Rate: 324 mL/hr, Dispensed: 100 mL bag, Site: #1 left wrist. Medication Ordered: Unasyn IV 3 gm/100mL (NOW). Start 19:22 09/02/2016 Francesca Napoles R.N., Stop 19:55 09/02/2016 Francesca Napoles R.N. Medication Administered: CLINDAMYCIN [IVPB], Dose: 900 mg IVPB over 30 minute(s), Rate: 100 mL/hr, Dispensed: 50 mL bag, Site: #1 left wrist. Medication Ordered: Clindamycin IV 900 mg/50mL (NOW). Given 20:15 09/02/2016 Francesca Napoles R.N. Medication Administered: DILAUDID [IVP] (HYDROMORPHONE HCL PF), Dose: 1 mg IVP over 1 minute(s), Site: #1 left wrist. Medication Ordered: Dilaudid IV 2 mg (HIGH ALERT MEDICATION, NOW). Given 22:50 09/02/2016 Francesca Napoles R.N. Medication Administered: DILAUDID [IVP] (HYDROMORPHONE HCL PF), Dose: 1 mg IVP over 1 minute(s), Site: #1 left wrist. Medication Ordered: Dilaudid IV 2 mg (HIGH ALERT MEDICATION, NOW).
--- NOTE | 2016-09-03 00:15 | ED DISCHARGE INSTRUCTIONS ---
Patient: JYOTI AZUL General Instructions [facility] VisitID: [id number] [place] [address] 51y, F Registration Date/Time: 09/02/2016 Single deep laceration to the right hand and right middle finger. Foreign body present. Complicated repair. Treatment of laceration not delayed. No infection. Partial laceration of the right flexor tendon of the hand, fourth finger and fifth finger. The injury location is the right hand. Foreign body present. No infection present. INSTRUCTIONS Elevate affected areas above chest level (tonight). Protect wound and keep wound area clean. Leave dressing in place until seen in follow-up. ([place] Office Info - Hand Dr. Walter Moe Phone Numbers Clinic Hours Saturday through , 8:00 a.m. to 5:00 p.m. Saturday, 8:00 a.m. to 4:00 p.m. [place] Address [address] [place] [address], [address] [place], [place] [address] Or [facility] at [address], [address], [place] [address] ). Warnings: COMPLICATIONS: Complications from this condition include: possible infection, possible injury to a nerve, possible injury to a tendon and possible injury to a ligament. Future problems may include infection, loss of function, pain and deformity. INFECTION: Watch for signs of infection (increasing heat and redness, pus-like drainage, swelling, or increased pain). Return or see your doctor if these signs occur. It is important to follow up with a physician for further evaluation and treatment. GENERAL WARNINGS: Return or contact your physician immediately if your condition worsens or changes unexpectedly, if not improving as expected, or if other problems arise. Specifically return if problem worsens. Prescription Medications: Zofran 4 mg: Take 1 orally every six hours as needed for nausea/vomiting. Dispense ten (10). No refills. Substitution is permissible. Cephalexin 500mg: take 1 tab orally every 6 hours for 7 days. No refills Pillager 5 mg / 325 mg tablets: take 1 to 2 orally every 6 hours as needed for pain. Dispense fifteen (15). No refills. Substitution is permissible. Motrin 800 mg tablets: take 1 tablet orally every 8 hours as needed for pain. Dispense thirty (30). No refills. Substitution is permissible. Clindamycin 150 mg: take 1 capsule orally every 12 hours for 7 days. No refill. Penicillin V 500 mg: take 1 tab orally every 12 hours for 7 days. Dispense fifteen (15). No refills. Diflucan 150 mg tablet: take 1 tablet orally today. No refills. Substitution is permissible. Understanding of the discharge instructions verbalized by patient. Follow-up with: Aiden Patel MD, Orthopedic Surgeon, , [id number], , [place], [id number] Follow up tomorrow even if well. Reason for referral: go straight to office. Summary of care provided to patient and family. ADDITIONAL INFORMATION Laceration, Extremity (Sutures, [place], Or Tape) A laceration is a cut through the skin. This will usually require stitches (sutures) or brady if it is deep. Minor cuts may be treated with surgical tape closures. Home care The following guidelines will help you care for your laceration at home: Keep the wound clean and dry. If a bandage was applied and it becomes wet or dirty, replace it. Otherwise, leave it in place for the first 24 hours, then change it once a day or as directed. If stitches or brady were used, clean the wound daily: After removing the bandage, wash the area with soap and water. Use a wet cotton swab to loosen and remove any blood or crust that forms. After cleaning, keep the wound clean and dry. Talk with your doctor before applying any antibiotic ointment to the wound. Reapply the bandage. You may remove the bandage to shower as usual after the first 24 hours, but do not soak the area in water (no swimming) until the stitches or brady are removed. If surgical tape closures were used, keep the area clean and dry. If it becomes wet, blot it dry with a towel. The doctor may prescribe an antibiotic cream or ointment to prevent infection. Do not stop taking this medication until you have finished the prescribed course or the doctor tells you to stop. The doctor may also prescribe medications for pain. Follow the doctors instructions for taking these medications. If you have chronic liver or kidney disease or ever had a stomach ulcer or GI bleeding, talk with your doctor before using these medicines. Follow-up care Follow up with your health care provider. Most skin wounds heal within ten days. However, an infection may sometimes occur despite proper treatment. Therefore, check the wound daily for the signs of infection listed below. Stitches and brady should be removed within 714 days. If surgical tape closures were used, you may remove them after 10 days, if they have not fallen off by then. Notify your doctor if you notice persistent numbness or weakness in the injured extremity. (Note:A radiologist will review any X-rays that were taken. We will notify you of any new findings that may affect your care.) When to seek medical care Get prompt medical attention if any of these occur: Increasing pain in the wound Redness, swelling, or pus coming from the wound Fever of 100.4F (38C) or higher, or as directed by your health care provider If stitches or brady come apart or fall out before your next appointment If the surgical tape closures fall off within seven days, or the wound edges re-open Bleeding not controlled by direct pressure Laceration, Tendon A tendon is a thick cord that joins muscle to bone and causes the joints to bend and straighten. One of your tendons has been cut. A tendon cut may be partial or complete. A complete cut of the tendon and a severe partial cut will need stitches (sutures) in the tendon. Smaller cuts in the tendon do not require stitches; however, the cut in the skin will need to be closed with stitches or brady. A cut tendon takes about 6 weeks to regain its full strength. Forceful use of the tendon too soon could cause the weakened tendon to tear apart. Antibiotics may be prescribed to reduce the risk of infection in the tendon. Some tendons are located close to the nerves, therefore, it is possible to bruise or cut a nerve when you injure a tendon. This may cause numbness or weakness of the hand or foot. Because of local pain and swelling at the time of injury it can be difficult to fully assess nerve function. If you notice numbness or weakness that persists, notify your doctor. A nerve repair can be done 5-10 days after injury. Home Care: Keep the injured part elevated during the first 48 hours to reduce swelling and pain. If a splint was applied, leave it in place until your next exam (unless told otherwise). Keep the part dry when bathing by covering it in a plastic bag sealed with a rubber band at the top end. If no splint was applied, you may change the bandage after 24 hours and begin cleaning the wound once a day with soap and water. After removing the bandage, wash the area with soap and water. Use a wet cotton swab (Q tip) to loosen and remove any blood or crust that forms.After cleaning, apply a thin layer of tizj-pbn-bjwzanz antibiotic ointment. This will keep the wound clean and make it easier to remove the stitches or brady. Reapply a fresh bandage. You may remove the bandage to shower as usual after the first 24 hours, but do not soak the area in water (no swimming) until the stitches or brady are removed. If antibiotics were prescribed, take them until they are gone. You may use acetaminophen (Tylenol) or ibuprofen (Motrin, Advil) to control pain, unless another pain medicine was prescribed. [ NOTE : If you have chronic liver or kidney disease or ever had a stomach ulcer or GI bleeding, talk with your doctor before using these medicines.] Follow Up: Most skin wounds heal within ten days. However, an infection may sometimes occur despite proper treatment. Therefore, check your wound daily f or the warning signs listed below. Stitches placed in the tendon will not need to be removed. Stitches or brady placed in the skin will be removed in 7-10 days. Be sure to keep your appointment for removal. At your follow up visit, talk to your doctor about when to begin exercising the tendon in order to prevent stiffness. Notify your doctor if you notice persistent numbness or weakness in the injured extremity.We will notify you of any new findings that may affect your care. Get Prompt Medical Attention If Any Of The Following Occur: Increasing pain in the wound Redness, swelling or pus coming from the wound Fever of 100.4F (38C) or higher, or as directed by your healthcare provider Stitches or brady come apart or fall out before your next appointment Bleeding is not controlled by direct pressure Laceration, Tendon A tendon is a thick cord that joins muscle to bone and causes the joints to bend and straighten. One of your tendons has been cut. A tendon cut may be partial or complete. A complete cut of the tendon and a severe partial cut will need stitches (sutures) in the tendon. Smaller cuts in the tendon do not require stitches; however, the cut in the skin will need to be closed with stitches or brady. A cut tendon takes about 6 weeks to regain its full strength. Forceful use of the tendon too soon could cause the weakened tendon to tear apart. Antibiotics may be prescribed to reduce the risk of infection in the tendon. Some tendons are located close to the nerves, therefore, it is possible to bruise or cut a nerve when you injure a tendon. This may cause numbness or weakness of the hand or foot. Because of local pain and swelling at the time of injury it can be difficult to fully assess nerve function. If you notice numbness or weakness that persists, notify your doctor. A nerve repair can be done 5-10 days after injury. Home Care: Keep the injured part elevated during the first 48 hours to reduce swelling and pain. If a splint was applied, leave it in place until your next exam (unless told otherwise). Keep the part dry when bathing by covering it in a plastic bag sealed with a rubber band at the top end. If no splint was applied, you may change the bandage after 24 hours and begin cleaning the wound once a day with soap and water. After removing the bandage, wash the area with soap and water. Use a wet cotton swab (Q tip) to loosen and remove any blood or crust that forms.After cleaning, apply a thin layer of ghmy-jep-ksjpgyz antibiotic ointment. This will keep the wound clean and make it easier to remove the stitches or brady. Reapply a fresh bandage. You may remove the bandage to shower as usual after the first 24 hours, but do not soak the area in water (no swimming) until the stitches or brady are removed. If antibiotics were prescribed, take them until they are gone. You may use acetaminophen (Tylenol) or ibuprofen (Motrin, Advil) to control pain, unless another pain medicine was prescribed. [ NOTE : If you have chronic liver or kidney disease or ever had a stomach ulcer or GI bleeding, talk with your doctor before using these medicines.] Follow Up: Most skin wounds heal within ten days. However, an infection may sometimes occur despite proper treatment. Therefore, check your wound daily f or the warning signs listed below. Stitches placed in the tendon will not need to be removed. Stitches or brady placed in the skin will be removed in 7-10 days. Be sure to keep your appointment for removal. At your follow up visit, talk to your doctor about when to begin exercising the tendon in order to prevent stiffness. Notify your doctor if you notice persistent numbness or weakness in the injured extremity.We will notify you of any new findings that may affect your care. Get Prompt Medical Attention If Any Of The Following Occur: Increasing pain in the wound Redness, swelling or pus coming from the wound Fever of 100.4F (38C) or higher, or as directed by your healthcare provider Stitches or brady come apart or fall out before your next appointment Bleeding is not controlled by direct pressure Ondansetron Oral disintegrating tablet What is this medicine? ONDANSETRON (on DOC se matthieu) is used to treat nausea and vomiting caused by chemotherapy. It is also used to prevent or treat nausea and vomiting after surgery. How should I use this medicine? These tablets are made to dissolve in the mouth. Do not try to push the tablet through the foil backing. With dry hands, peel away the foil backing and gently remove the tablet. Place the tablet in the mouth and allow it to dissolve, then swallow. While you may take these tablets with water, it is not necessary to do so. Talk to your oracle scm consultant regarding the use of this medicine in children. Special care may be needed. What side effects may I notice from receiving this medicine? Side effects that you should report to your doctor or health animal care supervisor as soon as possible: allergic reactions like skin rash, itching or hives, swelling of the face, lips, or tongue breathing problems dizziness fast or irregular heartbeat feeling faint or lightheaded, falls fever and chills swelling of the hands and feet tightness in the chest Side effects that usually do not require medical attention (report to your doctor or health animal care supervisor if they continue or are bothersome): constipation or diarrhea headache What may interact with this medicine? Do not take this medicine with any of the following medications: -apomorphine -cisapride -dofetilide -dronedarone -pimozide -thioridazine -ziprasidone This medicine may also interact with the following medications: -carbamazepine -phenytoin -rifampicin -tramadol -other medicines that prolong the QT interval (cause an abnormal heart rhythm) What if I miss a dose? If you miss a dose, take it as soon as you can. If it is almost time for your next dose, take only that dose. Do not take double or extra doses. Where should I keep my medicine? Keep out of the reach of children. Store between 2 and 30 degrees C (36 and 86 degrees F). Throw away any unused medicine after the expiration date. What should I tell my health care provider before I take this medicine? They need to know if you have any of these conditions: heart disease history of irregular heartbeat liver disease low levels of magnesium or potassium in the blood an unusual or allergic reaction to ondansetron, granisetron, other medicines, foods, dyes, or preservatives or trying to get breast-feeding What should I watch for while using this medicine? Check with your doctor or health animal care supervisor as soon as you can if you have any sign of an allergic reaction. Cephalexin Monohydrate Oral tablet What is this medicine? CEPHALEXIN (sef a KARTIK in) is a cephalosporin antibiotic. It is used to treat certain kinds of bacterial infections It will not work for colds, flu, or other viral infections. How should I use this medicine? Take this medicine by mouth with a full glass of water. Follow the directions on the prescription label. This medicine can be taken with or without food. Take your medicine at regular intervals. Do not take your medicine more often than directed. Take all of your medicine as directed even if you think you are better. Do not skip doses or stop your medicine early. Talk to your oracle scm consultant regarding the use of this medicine in children. While this drug may be prescribed for selected conditions, precautions do apply. What side effects may I notice from receiving this medicine? Side effects that you should report to your doctor or health animal care supervisor as soon as possible: allergic reactions like skin rash, itching or hives, swelling of the face, lips, or tongue breathing problems pain or trouble passing urine redness, blistering, peeling or loosening of the skin, including inside the mouth severe or watery diarrhea unusually weak or tired yellowing of the eyes, skin Side effects that usually do not require medical attention (report to your doctor or health animal care supervisor if they continue or are bothersome): gas or heartburn genital or anal irritation headache joint or muscle pain nausea, vomiting What may interact with this medicine? probenecid some other antibiotics What if I miss a dose? If you miss a dose, take it as soon as you can. If it is almost time for your next dose, take only that dose. Do not take double or extra doses. There should be at least 4 to 6 hours between doses. Where should I keep my medicine? Keep out of the reach of children. Store at room temperature between 59 and 86 degrees F (15 and 30 degrees C). Throw away any unused medicine after the expiration date. What should I tell my health care provider before I take this medicine? They need to know if you have any of these conditions: kidney disease stomach or intestine problems, especially colitis an unusual or allergic reaction to cephalexin, other cephalosporins, penicillins, other antibiotics, medicines, foods, dyes or preservatives or trying to get breast-feeding What should I watch for while using this medicine? Tell your doctor or health animal care supervisor if your symptoms do not begin to improve in a few days. Do not treat diarrhea with over the counter products. Contact your doctor if you have diarrhea that lasts more than 2 days or if it is severe and watery. If you have diabetes, you may get a false-positive result for sugar in your urine. Check with your doctor or health animal care supervisor. Hydrocodone Bitartrate, Acetaminophen Oral tablet What is this medicine? ACETAMINOPHEN; HYDROCODONE (a set a SHANNA tiffanie fen; ayaka droe KOE done) is a pain reliever. It is used to treat mild to moderate pain. How should I use this medicine? Take this medicine by mouth. Swallow it with a full glass of water. Follow the directions on the prescription label. If the medicine upsets your stomach, take the medicine with food or milk. Do not take more than you are told to take. Talk to your oracle scm consultant regarding the use of this medicine in children. This medicine is not approved for use in children. What side effects may I notice from receiving this medicine? Side effects that you should report to your doctor or health animal care supervisor as soon as possible: allergic reactions like skin rash, itching or hives, swelling of the face, lips, or tongue breathing problems confusion feeling faint or lightheaded, falls stomach pain yellowing of the eyes or skin Side effects that usually do not require medical attention (report to your doctor or health animal care supervisor if they continue or are bothersome): nausea, vomiting stomach upset What may interact with this medicine? alcohol antihistamines isoniazid medicines for depression, anxiety, or psychotic disturbances medicines for sleep muscle relaxants naltrexone narcotic medicines (opiates) for pain phenobarbital ritonavir tramadol What if I miss a dose? If you miss a dose, take it as soon as you can. If it is almost time for your next dose, take only that dose. Do not take double or extra doses. Where should I keep my medicine? Keep out of the reach of children. This medicine can be abused. Keep your medicine in a safe place to protect it from theft. Do not share this medicine with anyone. Selling or giving away this medicine is dangerous and against the law. Store at room temperature between 15 and 30 degrees C (59 and 86 degrees F). Protect from light. Keep container tightly closed. Throw away any unused medicine after the expiration date. Discard unused medicine and used packaging carefully. Pets and children can be harmed if they find used or lost packages. What should I tell my health care provider before I take this medicine? They need to know if you have any of these conditions: brain tumor Crohn's disease, inflammatory bowel disease, or ulcerative colitis drink more than 3 alcohol-containing drinks per day drug abuse or addiction head injury heart or circulation problems kidney disease or problems going to the bathroom liver disease lung disease, asthma, or breathing problems an unusual or allergic reaction to acetaminophen, hydrocodone, other opioid analgesics, other medicines, foods, dyes, or preservatives or trying to get breast-feeding What should I watch for while using this medicine? Tell your doctor or health animal care supervisor if your pain does not go away, if it gets worse, or if you have new or a different type of pain. You may develop tolerance to the medicine. Tolerance means that you will need a higher dose of the medicine for pain relief. Tolerance is normal and is expected if you take the medicine for a long time. Do not suddenly stop taking your medicine because you may develop a severe reaction. Your body becomes used to the medicine. This does NOT mean you are addicted. Addiction is a behavior related to getting and using a drug for a non-medical reason. If you have pain, you have a medical reason to take pain medicine. Your doctor will tell you how much medicine to take. If your doctor wants you to stop the medicine, the dose will be slowly lowered over time to avoid any side effects. You may get drowsy or dizzy when you first start taking the medicine or change doses. Do not drive, use machinery, or do anything that may be dangerous until you know how the medicine affects you. Stand or sit up slowly. There are different types of narcotic medicines (opiates) for pain. If you take more than one type at the same time, you may have more side effects. Give your health care provider a list of all medicines you use. Your doctor will tell you how much medicine to take. Do not take more medicine than directed. Call emergency for help if you have problems breathing. The medicine will cause constipation. Try to have a bowel movement at least every 2 to 3 days. If you do not have a bowel movement for 3 days, call your doctor or health animal care supervisor. Too much acetaminophen can be very dangerous. Do not take Tylenol (acetaminophen) or medicines that contain acetaminophen with this medicine. Many non-prescription medicines contain acetaminophen. Always read the labels carefully. Ibuprofen Oral tablet What is this medicine? IBUPROFEN (eye BYOO proe fen) is a non-steroidal anti-inflammatory drug (NSAID). It is used for dental pain, fever, headaches or migraines, osteoarthritis, rheumatoid arthritis, or painful monthly periods. It can also relieve minor aches and pains caused by a cold, flu, or sore throat. How should I use this medicine? Take this medicine by mouth with a glass of water. Follow the directions on the prescription label. Take this medicine with food if your stomach gets upset. Try to not lie down for at least 10 minutes after you take the medicine. Take your medicine at regular intervals. Do not take your medicine more often than directed. A special MedGuide will be given to you by the pharmacist with each prescription and refill. Be sure to read this information carefully each time. Talk to your oracle scm consultant regarding the use of this medicine in children. Special care may be needed. What side effects may I notice from receiving this medicine? Side effects that you should report to your doctor or health animal care supervisor as soon as possible: allergic reactions like skin rash, itching or hives, swelling of the face, lips, or tongue black or bloody stools, blood in the urine or in vomit breathing problems changes in vision chest pain general ill feeling or flu-like symptoms nausea or vomiting redness, blistering, peeling or loosening of the skin, including inside the mouth slurred speech or weakness on one side of the body stomach pain unexplained weight gain or swelling unusually weak or tired yellowing of eyes or skin Side effects that usually do not require medical attention (report to your doctor or health animal care supervisor if they continue or are bothersome): constipation or diarrhea dizziness gas or heartburn stomach upset What may interact with this medicine? Do not take this medicine with any of the following medications: cidofovir ketorolac methotrexate pemetrexed This medicine may also interact with the following medications: alcohol aspirin diuretics lithium other drugs for inflammation like prednisone warfarin What if I miss a dose? If you miss a dose, take it as soon as you can. If it is almost time for your next dose, take only that dose. Do not take double or extra doses. Where should I keep my medicine? Keep out of the reach of children. Store at room temperature between 15 and 30 degrees C (59 and 86 degrees F). Keep container tightly closed. Throw away any unused medicine after the expiration date. What should I tell my health care provider before I take this medicine? They need to know if you have any of these conditions: asthma cigarette smoker drink more than 3 alcohol containing drinks a day heart disease or circulation problems such as heart failure or leg edema (fluid retention) high blood pressure kidney disease liver disease stomach bleeding or ulcers an unusual or allergic reaction to ibuprofen, aspirin, other NSAIDS, other medicines, foods, dyes, or preservatives or trying to get breast-feeding What should I watch for while using this medicine? Tell your doctor or healthcare professional if your symptoms do not start to get better or if they get worse. This medicine does not prevent heart attack or stroke. In fact, this medicine may increase the chance of a heart attack or stroke. The chance may increase with longer use of this medicine and in people who have heart disease. If you take aspirin to prevent heart attack or stroke, talk with your doctor or health animal care supervisor. Do not take other medicines that contain aspirin, ibuprofen, or naproxen with this medicine. Side effects such as stomach upset, nausea, or ulcers may be more likely to occur. Many medicines available without a prescription should not be taken with this medicine. This medicine can cause ulcers and bleeding in the stomach and intestines at any time during treatment. Ulcers and bleeding can happen without warning symptoms and can cause . To reduce your risk, do not smoke cigarettes or drink alcohol while you are taking this medicine. You may get drowsy or dizzy. Do not drive, use machinery, or do anything that needs mental alertness until you know how this medicine affects you. Do not stand or sit up quickly, especially if you are an older patient. This reduces the risk of dizzy or fainting spells. This medicine can cause you to bleed more easily. Try to avoid damage to your teeth and gums when you brush or floss your teeth. Clindamycin Hydrochloride Oral capsule What is this medicine? CLINDAMYCIN (KLIN da MYE sin) is a lincosamide antibiotic. It is used to treat certain kinds of bacterial infections. It will not work for colds, flu, or other viral infections. How should I use this medicine? Take this medicine by mouth with a full glass of water. Follow the directions on the prescription label. You can take this medicine with food or on an empty stomach. If the medicine upsets your stomach, take it with food. Take your medicine at regular intervals. Do not take your medicine more often than directed. Take all of your medicine as directed even if you think your are better. Do not skip doses or stop your medicine early. Talk to your [employer] sc[employer] consultant regarding the use of this medicine in children. Special care may be needed. What side effects may I notice from receiving this medicine? Side effects that you should report to your doctor or health animal care supervisor as soon as possible: allergic reactions like skin rash, itching or hives, swelling of the face, lips, or tongue dark urine pain on swallowing redness, blistering, peeling or loosening of the skin, including inside the mouth unusual bleeding or bruising unusually weak or tired yellowing of eyes or skin Side effects that usually do not require medical attention (report to your doctor or health animal care supervisor if they continue or are bothersome): diarrhea itching in the rectal or genital area joint pain nausea, vomiting stomach pain What may interact with this medicine? chloramphenicol erythromycin kaolin products What if I miss a dose? If you miss a dose, take it as soon as you can. If it is almost time for your next dose, take only that dose. Do not take double or extra doses. Where should I keep my medicine? Keep out of the reach of children. Store at room temperature between 20 and 25 degrees C (68 and 77 degrees F). Throw away any unused medicine after the expiration date. What should I tell my health care provider before I take this medicine? They need to know if you have any of these conditions: kidney disease liver disease stomach problems like colitis an unusual or allergic reaction to clindamycin, lincomycin, or other medicines, foods, dyes like tartrazine or preservatives or trying to get breast-feeding What should I watch for while using this medicine? Tell your doctor or healthcare professional if your symptoms do not start to get better or if they get worse. Do not treat diarrhea with over the counter products. Contact your doctor if you have diarrhea that lasts more than 2 days or if it is severe and watery. Penicillin V Potassium Oral tablet What is this medicine? PENICILLIN V (pen i SILL in V) is a penicillin antibiotic. It is used to treat certain kinds of bacterial infections. It will not work for colds, flu, or other viral infections. How should I use this medicine? Take this medicine by mouth with a full glass of water. Follow the directions on the prescription label. Take your medicine at regular intervals. Do not take your medicine more often than directed. Take all of your medicine as directed even if you think your are better. Do not skip doses or stop your medicine early. Talk to your oracle scm consultant regarding the use of this medicine in children. While this drug may be prescribed for selected conditions, precautions do apply. What side effects may I notice from receiving this medicine? Side effects that you should report to your doctor or health animal care supervisor as soon as possible: allergic reactions like skin rash or hives, swelling of the face, lips, or tongue breathing problems fever new symptoms of infection redness, blistering, peeling or loosening of the skin, including inside the mouth unusually weak or tired Side effects that usually do not require medical attention (report to your doctor or health animal care supervisor if they continue or are bothersome): diarrhea headache nausea, vomiting sore mouth or tongue stomach upset What may interact with this medicine? control pills methotrexate other antibiotics probenecid some vaccines What if I miss a dose? If you miss a dose, take it as soon as you can. If it is almost time for your next dose, take only that dose. Do not take double or extra doses. Where should I keep my medicine? Keep out of the reach of children. Store at room temperature between 15 and 30 degrees C (59 and 86 degrees F). Keep container tightly closed. Throw away any unused medicine after the expiration date. What should I tell my health care provider before I take this medicine? They need to know if you have any of these conditions: asthma bowel disease, like colitis eczema kidney disease an unusual or allergic reaction to penicillin, cephalosporins, other antibiotics or medicines, foods, tartrazine or other dyes, or preservatives or trying to get breast-feeding What should I watch for while using this medicine? Tell your doctor or health animal care supervisor if your symptoms do not improve. Do not treat diarrhea with over the counter products. Contact your doctor if you have diarrhea that lasts more than 2 days or if it is severe and watery. If you have diabetes, you may get a false-positive result for sugar in your urine. Check with your doctor or health animal care supervisor. control pills may not work properly while you are taking this medicine. Talk to your doctor about using an extra method of control. Fluconazole Oral tablet What is this medicine? FLUCONAZOLE (floo ANTONELLA na zole) is an antifungal medicine. It is used to treat certain kinds of fungal or yeast infections. How should I use this medicine? Take this medicine by mouth. Follow the directions on the prescription label. Do not take your medicine more often than directed. Talk to your oracle scm consultant regarding the use of this medicine in children. Special care may be needed. This medicine has been used in children as young as 6 months of age. What side effects may I notice from receiving this medicine? Side effects that you should report to your doctor or health animal care supervisor as soon as possible: allergic reactions like skin rash or itching, hives, swelling of the lips, mouth, tongue, or throat dark urine feeling dizzy or faint irregular heartbeat or chest pain redness, blistering, peeling or loosening of the skin, including inside the mouth trouble breathing unusual bruising or bleeding vomiting yellowing of the eyes or skin Side effects that usually do not require medical attention (report to your doctor or health animal care supervisor if they continue or are bothersome): changes in how food tastes diarrhea headache stomach upset or nausea What may interact with this medicine? Do not take this medicine with any of the following medications: cisapride pimozide red yeast rice This medicine may also interact with the following medications: control pills cyclosporine diuretics like hydrochlorothiazide medicines for diabetes that are taken by mouth medicines for high cholesterol like atorvastatin, lovastatin or simvastatin phenytoin ramelteon rifabutin rifampin some medicines for anxiety or sleep tacrolimus terfenadine theophylline tofacitinib warfarin What if I miss a dose? If you miss a dose, take it as soon as you can. If it is almost time for your next dose, take only that dose. Do not take double or extra doses. Where should I keep my medicine? Keep out of the reach of children. Store at room temperature below 30 degrees C (86 degrees F). Throw away any medicine after the expiration date. What should I tell my health care provider before I take this medicine? They need to know if you have any of these conditions: electrolyte abnormalities history of irregular heart beat kidney disease an unusual or allergic reaction to fluconazole, other azole antifungals, medicines, foods, dyes, or preservatives or trying to get breast-feeding What should I watch for while using this medicine? Visit your doctor or health animal care supervisor for regular checkups. If you are taking this medicine for a long time you may need blood work. Tell your doctor if your symptoms do not improve. Some fungal infections need many weeks or months of treatment to cure. Alcohol can increase possible damage to your liver. Avoid alcoholic drinks. If you have a vaginal infection, do not have sex until you have finished your treatment. You can wear a sanitary napkin. Do not use tampons. Wear freshly washed cotton, not synthetic, panties. You have been given the following additional information: Laceration, Extrem (Suture, Staple, Or Tape) Laceration, Tendon Laceration, Tendon Ondansetron Oral disintegrating tablet Cephalexin Monohydrate Oral tablet Hydrocodone Bitartrate, Acetaminophen Oral tablet Ibuprofen Oral tablet Clindamycin Hydrochloride Oral capsule Penicillin V Potassium Oral tablet Fluconazole Oral tablet (Electronically signed by Grace Gaston A.R.N.P. 09/03/2016 0:14)
--- NOTE | 2016-09-03 00:15 | ED MED RECONCILIATION SUMMARY ---
Patient: JYOTI AZUL Medication Reconciliation Report [facility] VisitID: [id number] [place] [address] 51y, F Registration Date/Time: 09/02/2016 Weight: 58.9 kg Height/Length: 64 in. BMI: 22.3 ALLERGIES: Red Dye, Sulfa Antibiotics The patient's Home Medications are listed below: THE FOLLOWING MEDICATIONS NEED TO BE RECONCILED: Gabapentin Oral The source(s) of the original Home Medication information: patient The following Medications were given to the patient in the Emergency Department: IV NS IV Fluids bolus 0, then 1000 mL/hr, administered: 09/02/2016 6:00:00 PM Zofran [IVP] IVP 4 mg, administered: 09/02/2016 6:01:00 PM Dilaudid [IVP] IVP 2 mg, administered: 09/02/2016 6:01:00 PM TDAP [IM] IM 0.5 mL, administered: 09/02/2016 6:22:00 PM Ancef [IVPB] IVPB bolus 0, then 1 gm 150 mL/hr, administered: 09/02/2016 6:35:00 PM Ancef [IVPB] IVPB bolus 0, then 1 gm 150 mL/hr, administered: 09/02/2016 6:42:00 PM Unasyn [IVPB] IVPB bolus 0, then 3 gm 324 mL/hr, administered: 09/02/2016 6:57:00 PM Clindamycin [IVPB] IVPB bolus 0, then 900 mg 100 mL/hr, administered: 09/02/2016 7:22:00 PM Dilaudid [IVP] IVP 1 mg, administered: 09/02/2016 8:15:00 PM Dilaudid [IVP] IVP 1 mg, administered: 09/02/2016 10:50:00 PM The following Medications were prescribed to the patient: Zofran 4 mg: Take 1 orally every six hours as needed for nausea/vomiting. Dispense ten (10). No refills. Substitution is permissible. -- Grace Gaston, A.R.N.P. Cephalexin 500mg: take 1 tab orally every 6 hours for 7 days. No refills -- Grace Gaston A.R.N.PJennifer Hensel 5 mg / 325 mg tablets: take 1 to 2 orally every 6 hours as needed for pain. Dispense fifteen (15). No refills. Substitution is permissible. -- Grace Gaston A.R.N.PJennifer Motrin 800 mg tablets: take 1 tablet orally every 8 hours as needed for pain. Dispense thirty (30). No refills. Substitution is permissible. -- Grace Gaston A.R.N.PJennifer Clindamycin 150 mg: take 1 capsule orally every 12 hours for 7 days. No refill. -- Grace Gaston A.R.NJenniferPJennifer Penicillin V 500 mg: take 1 tab orally every 12 hours for 7 days. Dispense fifteen (15). No refills. -- Grace Gaston A.R.N.PJennifer Diflucan 150 mg tablet: take 1 tablet orally today. No refills. Substitution is permissible. -- Grace Gaston A.R.N.P.
--- NOTE | 2016-09-03 00:15 | ED MED RECONCILIATION SUMMARY ---
Patient: JYOTI AZUL Medication Reconciliation Report [facility] VisitID: [id number] [place] [address] 51y, F Registration Date/Time: 09/02/2016 Weight: 58.9 kg Height/Length: 64 in. BMI: 22.3 ALLERGIES: Red Dye, Sulfa Antibiotics The patient's Home Medications are listed below: THE FOLLOWING MEDICATIONS NEED TO BE RECONCILED: Gabapentin Oral The source(s) of the original Home Medication information: patient The following Medications were given to the patient in the Emergency Department: IV NS IV Fluids bolus 0, then 1000 mL/hr, administered: 09/02/2016 6:00:00 PM Zofran [IVP] IVP 4 mg, administered: 09/02/2016 6:01:00 PM Dilaudid [IVP] IVP 2 mg, administered: 09/02/2016 6:01:00 PM TDAP [IM] IM 0.5 mL, administered: 09/02/2016 6:22:00 PM Ancef [IVPB] IVPB bolus 0, then 1 gm 150 mL/hr, administered: 09/02/2016 6:35:00 PM Ancef [IVPB] IVPB bolus 0, then 1 gm 150 mL/hr, administered: 09/02/2016 6:42:00 PM Unasyn [IVPB] IVPB bolus 0, then 3 gm 324 mL/hr, administered: 09/02/2016 6:57:00 PM Clindamycin [IVPB] IVPB bolus 0, then 900 mg 100 mL/hr, administered: 09/02/2016 7:22:00 PM Dilaudid [IVP] IVP 1 mg, administered: 09/02/2016 8:15:00 PM Dilaudid [IVP] IVP 1 mg, administered: 09/02/2016 10:50:00 PM The following Medications were prescribed to the patient: Zofran 4 mg: Take 1 orally every six hours as needed for nausea/vomiting. Dispense ten (10). No refills. Substitution is permissible. -- Grace Gaston, A.R.N.P. Cephalexin 500mg: take 1 tab orally every 6 hours for 7 days. No refills -- Grace Gaston A.R.N.PJennifer Lawtons 5 mg / 325 mg tablets: take 1 to 2 orally every 6 hours as needed for pain. Dispense fifteen (15). No refills. Substitution is permissible. -- Grace Gaston A.R.N.PJennifer Motrin 800 mg tablets: take 1 tablet orally every 8 hours as needed for pain. Dispense thirty (30). No refills. Substitution is permissible. -- Grace Gaston A.R.N.PJennifer Clindamycin 150 mg: take 1 capsule orally every 12 hours for 7 days. No refill. -- Grace Gaston A.R.NJenniferPJennifer Penicillin V 500 mg: take 1 tab orally every 12 hours for 7 days. Dispense fifteen (15). No refills. -- Grace Gaston A.R.N.PJennifer Diflucan 150 mg tablet: take 1 tablet orally today. No refills. Substitution is permissible. -- Grace Gaston A.R.N.P.
--- NOTE | 2016-09-03 00:15 | ED MAR SUMMARY ---
..... Medication Administration Record [facility] [address] [place] [address] Patient: JYOTI ZAUL Visit ID: [id number] 51y, F Weight: 58.9 kg Height/Length: 64 in BMI: 22.3 ALLERGIES: Red Dye, Sulfa Antibiotics Start 18:00 09/02/2016 Francesca Napoles R.N., Stop 19:09/02/2016 Francesca Napoles R.N. Medication Administered: IV NS (SALINE), Dose: IV Fluids over 1 hour(s), Rate: 1000 mL/hr, Dispensed: 1000 mL bag, Site: #1 left wrist. Medication Ordered: IV NS : initial bolus 1000 mL (1000 mL/hr), then none - (NOW). Given 18:09/02/2016 Francesca Napoles R.N. Medication Administered: DILAUDID [IVP] (HYDROMORPHONE HCL PF), Dose: 2 mg IVP over 2 minute(s), Site: #1 left wrist. Medication Ordered: Dilaudid IV 2 mg (HIGH ALERT MEDICATION, NOW). Given 18:09/02/2016 Francesca Napoles R.N. Medication Administered: ZOFRAN [IVP] (ONDANSETRON HCL), Dose: 4 mg IVP over 1 minute(s), Site: #1 left wrist. Medication Ordered: Zofran IV 4 mg (NOW). Given 18:09/02/2016 Francesca Napoles R.N. Medication Administered: TDAP [IM], Dose: 0.5 mL IM. Medication Ordered: Tdap IM 0.5 mL (NOW, per protocol). Start 18:35 09/02/2016 Carmela Ramos R.N., Stop 18:42 09/02/2016 Carmela Ramos R.N. Medication Administered: ANCEF [IVPB] (CEFAZOLIN SODIUM), Dose: 1 gm IVPB over 20 minute(s), Rate: 150 mL/hr, Dispensed: 100 mL bag, Site: #1 left wrist. Medication Ordered: Ancef IV 2 gm/100mL (NOW). Start 18:42 09/02/2016 Carmela Ramos R.N., Stop 18:57 09/02/2016 Francesca Napoles R.N. Medication Administered: ANCEF [IVPB] (CEFAZOLIN SODIUM), Dose: 1 gm IVPB over 20 minute(s), Rate: 150 mL/hr, Dispensed: 100 mL bag, Site: #1 left wrist. Medication Ordered: Ancef IV 2 gm/100mL (NOW). Start 18:57 09/02/2016 Francesca Napoles R.N., Stop 19:21 09/02/2016 Francesca Napoles R.N. Medication Administered: UNASYN [IVPB] (AMPICILLIN-SULBACTAM SODIUM), Dose: 3 gm IVPB over 20 minute(s), Rate: 324 mL/hr, Dispensed: 100 mL bag, Site: #1 left wrist. Medication Ordered: Unasyn IV 3 gm/100mL (NOW). Start 19:22 09/02/2016 Francesca Napoles R.N., Stop 19:55 09/02/2016 Francesca Napoles R.N. Medication Administered: CLINDAMYCIN [IVPB], Dose: 900 mg IVPB over 30 minute(s), Rate: 100 mL/hr, Dispensed: 50 mL bag, Site: #1 left wrist. Medication Ordered: Clindamycin IV 900 mg/50mL (NOW). Given 20:15 09/02/2016 Francesca Napoles R.N. Medication Administered: DILAUDID [IVP] (HYDROMORPHONE HCL PF), Dose: 1 mg IVP over 1 minute(s), Site: #1 left wrist. Medication Ordered: Dilaudid IV 2 mg (HIGH ALERT MEDICATION, NOW). Given 22:50 09/02/2016 Francesca Napoles R.N. Medication Administered: DILAUDID [IVP] (HYDROMORPHONE HCL PF), Dose: 1 mg IVP over 1 minute(s), Site: #1 left wrist. Medication Ordered: Dilaudid IV 2 mg (HIGH ALERT MEDICATION, NOW).
--- NOTE | 2016-09-03 00:15 | ED DISCHARGE INSTRUCTIONS ---
Patient: JYOTI AZUL General Instructions [facility] VisitID: [id number] [place] [address] 51y, F Registration Date/Time: 09/02/2016 Single deep laceration to the right hand and right middle finger. Foreign body present. Complicated repair. Treatment of laceration not delayed. No infection. Partial laceration of the right flexor tendon of the hand, fourth finger and fifth finger. The injury location is the right hand. Foreign body present. No infection present. INSTRUCTIONS Elevate affected areas above chest level (tonight). Protect wound and keep wound area clean. Leave dressing in place until seen in follow-up. ([facility] Info - Hand Dr. Walter Moe Phone Numbers Clinic Hours Saturday through , 8:00 a.m. to 5:00 p.m. Saturday, 8:00 a.m. to 4:00 p.m. [facility] Address [address] [place] [address], [address] [place], [place] [address] Or [facility] at [address], [address], [place] [address] ). Warnings: COMPLICATIONS: Complications from this condition include: possible infection, possible injury to a nerve, possible injury to a tendon and possible injury to a ligament. Future problems may include infection, loss of function, pain and deformity. INFECTION: Watch for signs of infection (increasing heat and redness, pus-like drainage, swelling, or increased pain). Return or see your doctor if these signs occur. It is important to follow up with a physician for further evaluation and treatment. GENERAL WARNINGS: Return or contact your physician immediately if your condition worsens or changes unexpectedly, if not improving as expected, or if other problems arise. Specifically return if problem worsens. Prescription Medications: Zofran 4 mg: Take 1 orally every six hours as needed for nausea/vomiting. Dispense ten (10). No refills. Substitution is permissible. Cephalexin 500mg: take 1 tab orally every 6 hours for 7 days. No refills Magee 5 mg / 325 mg tablets: take 1 to 2 orally every 6 hours as needed for pain. Dispense fifteen (15). No refills. Substitution is permissible. Motrin 800 mg tablets: take 1 tablet orally every 8 hours as needed for pain. Dispense thirty (30). No refills. Substitution is permissible. Clindamycin 150 mg: take 1 capsule orally every 12 hours for 7 days. No refill. Penicillin V 500 mg: take 1 tab orally every 12 hours for 7 days. Dispense fifteen (15). No refills. Diflucan 150 mg tablet: take 1 tablet orally today. No refills. Substitution is permissible. Understanding of the discharge instructions verbalized by patient. Follow-up with: Aiden Patel MD, Orthopedic Surgeon, , [address], , [place], [address] Follow up tomorrow even if well. Reason for referral: go straight to office. Summary of care provided to patient and family. ADDITIONAL INFORMATION Laceration, Extremity (Sutures, Page, Or Tape) A laceration is a cut through the skin. This will usually require stitches (sutures) or brady if it is deep. Minor cuts may be treated with surgical tape closures. Home care The following guidelines will help you care for your laceration at home: Keep the wound clean and dry. If a bandage was applied and it becomes wet or dirty, replace it. Otherwise, leave it in place for the first 24 hours, then change it once a day or as directed. If stitches or brady were used, clean the wound daily: After removing the bandage, wash the area with soap and water. Use a wet cotton swab to loosen and remove any blood or crust that forms. After cleaning, keep the wound clean and dry. Talk with your doctor before applying any antibiotic ointment to the wound. Reapply the bandage. You may remove the bandage to shower as usual after the first 24 hours, but do not soak the area in water (no swimming) until the stitches or brady are removed. If surgical tape closures were used, keep the area clean and dry. If it becomes wet, blot it dry with a towel. The doctor may prescribe an antibiotic cream or ointment to prevent infection. Do not stop taking this medication until you have finished the prescribed course or the doctor tells you to stop. The doctor may also prescribe medications for pain. Follow the doctors instructions for taking these medications. If you have chronic liver or kidney disease or ever had a stomach ulcer or GI bleeding, talk with your doctor before using these medicines. Follow-up care Follow up with your health care provider. Most skin wounds heal within ten days. However, an infection may sometimes occur despite proper treatment. Therefore, check the wound daily for the signs of infection listed below. Stitches and brady should be removed within 714 days. If surgical tape closures were used, you may remove them after 10 days, if they have not fallen off by then. Notify your doctor if you notice persistent numbness or weakness in the injured extremity. (Note:A radiologist will review any X-rays that were taken. We will notify you of any new findings that may affect your care.) When to seek medical care Get prompt medical attention if any of these occur: Increasing pain in the wound Redness, swelling, or pus coming from the wound Fever of 100.4F (38C) or higher, or as directed by your health care provider If stitches or brady come apart or fall out before your next appointment If the surgical tape closures fall off within seven days, or the wound edges re-open Bleeding not controlled by direct pressure Laceration, Tendon A tendon is a thick cord that joins muscle to bone and causes the joints to bend and straighten. One of your tendons has been cut. A tendon cut may be partial or complete. A complete cut of the tendon and a severe partial cut will need stitches (sutures) in the tendon. Smaller cuts in the tendon do not require stitches; however, the cut in the skin will need to be closed with stitches or brady. A cut tendon takes about 6 weeks to regain its full strength. Forceful use of the tendon too soon could cause the weakened tendon to tear apart. Antibiotics may be prescribed to reduce the risk of infection in the tendon. Some tendons are located close to the nerves, therefore, it is possible to bruise or cut a nerve when you injure a tendon. This may cause numbness or weakness of the hand or foot. Because of local pain and swelling at the time of injury it can be difficult to fully assess nerve function. If you notice numbness or weakness that persists, notify your doctor. A nerve repair can be done 5-10 days after injury. Home Care: Keep the injured part elevated during the first 48 hours to reduce swelling and pain. If a splint was applied, leave it in place until your next exam (unless told otherwise). Keep the part dry when bathing by covering it in a plastic bag sealed with a rubber band at the top end. If no splint was applied, you may change the bandage after 24 hours and begin cleaning the wound once a day with soap and water. After removing the bandage, wash the area with soap and water. Use a wet cotton swab (Q tip) to loosen and remove any blood or crust that forms.After cleaning, apply a thin layer of ivnc-khg-dsiqsdn antibiotic ointment. This will keep the wound clean and make it easier to remove the stitches or brady. Reapply a fresh bandage. You may remove the bandage to shower as usual after the first 24 hours, but do not soak the area in water (no swimming) until the stitches or bardy are removed. If antibiotics were prescribed, take them until they are gone. You may use acetaminophen (Tylenol) or ibuprofen (Motrin, Advil) to control pain, unless another pain medicine was prescribed. [ NOTE : If you have chronic liver or kidney disease or ever had a stomach ulcer or GI bleeding, talk with your doctor before using these medicines.] Follow Up: Most skin wounds heal within ten days. However, an infection may sometimes occur despite proper treatment. Therefore, check your wound daily f or the warning signs listed below. Stitches placed in the tendon will not need to be removed. Stitches or brady placed in the skin will be removed in 7-10 days. Be sure to keep your appointment for removal. At your follow up visit, talk to your doctor about when to begin exercising the tendon in order to prevent stiffness. Notify your doctor if you notice persistent numbness or weakness in the injured extremity.We will notify you of any new findings that may affect your care. Get Prompt Medical Attention If Any Of The Following Occur: Increasing pain in the wound Redness, swelling or pus coming from the wound Fever of 100.4F (38C) or higher, or as directed by your healthcare provider Stitches or brady come apart or fall out before your next appointment Bleeding is not controlled by direct pressure Laceration, Tendon A tendon is a thick cord that joins muscle to bone and causes the joints to bend and straighten. One of your tendons has been cut. A tendon cut may be partial or complete. A complete cut of the tendon and a severe partial cut will need stitches (sutures) in the tendon. Smaller cuts in the tendon do not require stitches; however, the cut in the skin will need to be closed with stitches or brady. A cut tendon takes about 6 weeks to regain its full strength. Forceful use of the tendon too soon could cause the weakened tendon to tear apart. Antibiotics may be prescribed to reduce the risk of infection in the tendon. Some tendons are located close to the nerves, therefore, it is possible to bruise or cut a nerve when you injure a tendon. This may cause numbness or weakness of the hand or foot. Because of local pain and swelling at the time of injury it can be difficult to fully assess nerve function. If you notice numbness or weakness that persists, notify your doctor. A nerve repair can be done 5-10 days after injury. Home Care: Keep the injured part elevated during the first 48 hours to reduce swelling and pain. If a splint was applied, leave it in place until your next exam (unless told otherwise). Keep the part dry when bathing by covering it in a plastic bag sealed with a rubber band at the top end. If no splint was applied, you may change the bandage after 24 hours and begin cleaning the wound once a day with soap and water. After removing the bandage, wash the area with soap and water. Use a wet cotton swab (Q tip) to loosen and remove any blood or crust that forms.After cleaning, apply a thin layer of kkzb-dqy-xggpnhe antibiotic ointment. This will keep the wound clean and make it easier to remove the stitches or brady. Reapply a fresh bandage. You may remove the bandage to shower as usual after the first 24 hours, but do not soak the area in water (no swimming) until the stitches or brady are removed. If antibiotics were prescribed, take them until they are gone. You may use acetaminophen (Tylenol) or ibuprofen (Motrin, Advil) to control pain, unless another pain medicine was prescribed. [ NOTE : If you have chronic liver or kidney disease or ever had a stomach ulcer or GI bleeding, talk with your doctor before using these medicines.] Follow Up: Most skin wounds heal within ten days. However, an infection may sometimes occur despite proper treatment. Therefore, check your wound daily f or the warning signs listed below. Stitches placed in the tendon will not need to be removed. Stitches or brady placed in the skin will be removed in 7-10 days. Be sure to keep your appointment for removal. At your follow up visit, talk to your doctor about when to begin exercising the tendon in order to prevent stiffness. Notify your doctor if you notice persistent numbness or weakness in the injured extremity.We will notify you of any new findings that may affect your care. Get Prompt Medical Attention If Any Of The Following Occur: Increasing pain in the wound Redness, swelling or pus coming from the wound Fever of 100.4F (38C) or higher, or as directed by your healthcare provider Stitches or brady come apart or fall out before your next appointment Bleeding is not controlled by direct pressure Ondansetron Oral disintegrating tablet What is this medicine? ONDANSETRON (on DOC se matthieu) is used to treat nausea and vomiting caused by chemotherapy. It is also used to prevent or treat nausea and vomiting after surgery. How should I use this medicine? These tablets are made to dissolve in the mouth. Do not try to push the tablet through the foil backing. With dry hands, peel away the foil backing and gently remove the tablet. Place the tablet in the mouth and allow it to dissolve, then swallow. While you may take these tablets with water, it is not necessary to do so. Talk to your sales agent casualty insurance regarding the use of this medicine in children. Special care may be needed. What side effects may I notice from receiving this medicine? Side effects that you should report to your doctor or health vp care management as soon as possible: allergic reactions like skin rash, itching or hives, swelling of the face, lips, or tongue breathing problems dizziness fast or irregular heartbeat feeling faint or lightheaded, falls fever and chills swelling of the hands and feet tightness in the chest Side effects that usually do not require medical attention (report to your doctor or health vp care management if they continue or are bothersome): constipation or diarrhea headache What may interact with this medicine? Do not take this medicine with any of the following medications: -apomorphine -cisapride -dofetilide -dronedarone -pimozide -thioridazine -ziprasidone This medicine may also interact with the following medications: -carbamazepine -phenytoin -rifampicin -tramadol -other medicines that prolong the QT interval (cause an abnormal heart rhythm) What if I miss a dose? If you miss a dose, take it as soon as you can. If it is almost time for your next dose, take only that dose. Do not take double or extra doses. Where should I keep my medicine? Keep out of the reach of children. Store between 2 and 30 degrees C (36 and 86 degrees F). Throw away any unused medicine after the expiration date. What should I tell my health care provider before I take this medicine? They need to know if you have any of these conditions: heart disease history of irregular heartbeat liver disease low levels of magnesium or potassium in the blood an unusual or allergic reaction to ondansetron, granisetron, other medicines, foods, dyes, or preservatives or trying to get breast-feeding What should I watch for while using this medicine? Check with your doctor or health vp care management as soon as you can if you have any sign of an allergic reaction. Cephalexin Monohydrate Oral tablet What is this medicine? CEPHALEXIN (sef a KARTIK in) is a cephalosporin antibiotic. It is used to treat certain kinds of bacterial infections It will not work for colds, flu, or other viral infections. How should I use this medicine? Take this medicine by mouth with a full glass of water. Follow the directions on the prescription label. This medicine can be taken with or without food. Take your medicine at regular intervals. Do not take your medicine more often than directed. Take all of your medicine as directed even if you think you are better. Do not skip doses or stop your medicine early. Talk to your sales agent casualty insurance regarding the use of this medicine in children. While this drug may be prescribed for selected conditions, precautions do apply. What side effects may I notice from receiving this medicine? Side effects that you should report to your doctor or health vp care management as soon as possible: allergic reactions like skin rash, itching or hives, swelling of the face, lips, or tongue breathing problems pain or trouble passing urine redness, blistering, peeling or loosening of the skin, including inside the mouth severe or watery diarrhea unusually weak or tired yellowing of the eyes, skin Side effects that usually do not require medical attention (report to your doctor or health vp care management if they continue or are bothersome): gas or heartburn genital or anal irritation headache joint or muscle pain nausea, vomiting What may interact with this medicine? probenecid some other antibiotics What if I miss a dose? If you miss a dose, take it as soon as you can. If it is almost time for your next dose, take only that dose. Do not take double or extra doses. There should be at least 4 to 6 hours between doses. Where should I keep my medicine? Keep out of the reach of children. Store at room temperature between 59 and 86 degrees F (15 and 30 degrees C). Throw away any unused medicine after the expiration date. What should I tell my health care provider before I take this medicine? They need to know if you have any of these conditions: kidney disease stomach or intestine problems, especially colitis an unusual or allergic reaction to cephalexin, other cephalosporins, penicillins, other antibiotics, medicines, foods, dyes or preservatives or trying to get breast-feeding What should I watch for while using this medicine? Tell your doctor or health vp care management if your symptoms do not begin to improve in a few days. Do not treat diarrhea with over the counter products. Contact your doctor if you have diarrhea that lasts more than 2 days or if it is severe and watery. If you have diabetes, you may get a false-positive result for sugar in your urine. Check with your doctor or health vp care management. Hydrocodone Bitartrate, Acetaminophen Oral tablet What is this medicine? ACETAMINOPHEN; HYDROCODONE (a set a SHANNA tiffanie fen; ayaka droe KOE done) is a pain reliever. It is used to treat mild to moderate pain. How should I use this medicine? Take this medicine by mouth. Swallow it with a full glass of water. Follow the directions on the prescription label. If the medicine upsets your stomach, take the medicine with food or milk. Do not take more than you are told to take. Talk to your sales agent casualty insurance regarding the use of this medicine in children. This medicine is not approved for use in children. What side effects may I notice from receiving this medicine? Side effects that you should report to your doctor or health vp care management as soon as possible: allergic reactions like skin rash, itching or hives, swelling of the face, lips, or tongue breathing problems confusion feeling faint or lightheaded, falls stomach pain yellowing of the eyes or skin Side effects that usually do not require medical attention (report to your doctor or health vp care management if they continue or are bothersome): nausea, vomiting stomach upset What may interact with this medicine? alcohol antihistamines isoniazid medicines for depression, anxiety, or psychotic disturbances medicines for sleep muscle relaxants naltrexone narcotic medicines (opiates) for pain phenobarbital ritonavir tramadol What if I miss a dose? If you miss a dose, take it as soon as you can. If it is almost time for your next dose, take only that dose. Do not take double or extra doses. Where should I keep my medicine? Keep out of the reach of children. This medicine can be abused. Keep your medicine in a safe place to protect it from theft. Do not share this medicine with anyone. Selling or giving away this medicine is dangerous and against the law. Store at room temperature between 15 and 30 degrees C (59 and 86 degrees F). Protect from light. Keep container tightly closed. Throw away any unused medicine after the expiration date. Discard unused medicine and used packaging carefully. Pets and children can be harmed if they find used or lost packages. What should I tell my health care provider before I take this medicine? They need to know if you have any of these conditions: brain tumor Crohn's disease, inflammatory bowel disease, or ulcerative colitis drink more than 3 alcohol-containing drinks per day drug abuse or addiction head injury heart or circulation problems kidney disease or problems going to the bathroom liver disease lung disease, asthma, or breathing problems an unusual or allergic reaction to acetaminophen, hydrocodone, other opioid analgesics, other medicines, foods, dyes, or preservatives or trying to get breast-feeding What should I watch for while using this medicine? Tell your doctor or health vp care management if your pain does not go away, if it gets worse, or if you have new or a different type of pain. You may develop tolerance to the medicine. Tolerance means that you will need a higher dose of the medicine for pain relief. Tolerance is normal and is expected if you take the medicine for a long time. Do not suddenly stop taking your medicine because you may develop a severe reaction. Your body becomes used to the medicine. This does NOT mean you are addicted. Addiction is a behavior related to getting and using a drug for a non-medical reason. If you have pain, you have a medical reason to take pain medicine. Your doctor will tell you how much medicine to take. If your doctor wants you to stop the medicine, the dose will be slowly lowered over time to avoid any side effects. You may get drowsy or dizzy when you first start taking the medicine or change doses. Do not drive, use machinery, or do anything that may be dangerous until you know how the medicine affects you. Stand or sit up slowly. There are different types of narcotic medicines (opiates) for pain. If you take more than one type at the same time, you may have more side effects. Give your health care provider a list of all medicines you use. Your doctor will tell you how much medicine to take. Do not take more medicine than directed. Call emergency for help if you have problems breathing. The medicine will cause constipation. Try to have a bowel movement at least every 2 to 3 days. If you do not have a bowel movement for 3 days, call your doctor or health vp care management. Too much acetaminophen can be very dangerous. Do not take Tylenol (acetaminophen) or medicines that contain acetaminophen with this medicine. Many non-prescription medicines contain acetaminophen. Always read the labels carefully. Ibuprofen Oral tablet What is this medicine? IBUPROFEN (eye BYOO proe fen) is a non-steroidal anti-inflammatory drug (NSAID). It is used for dental pain, fever, headaches or migraines, osteoarthritis, rheumatoid arthritis, or painful monthly periods. It can also relieve minor aches and pains caused by a cold, flu, or sore throat. How should I use this medicine? Take this medicine by mouth with a glass of water. Follow the directions on the prescription label. Take this medicine with food if your stomach gets upset. Try to not lie down for at least 10 minutes after you take the medicine. Take your medicine at regular intervals. Do not take your medicine more often than directed. A special MedGuide will be given to you by the pharmacist with each prescription and refill. Be sure to read this information carefully each time. Talk to your sales agent casualty insurance regarding the use of this medicine in children. Special care may be needed. What side effects may I notice from receiving this medicine? Side effects that you should report to your doctor or health vp care management as soon as possible: allergic reactions like skin rash, itching or hives, swelling of the face, lips, or tongue black or bloody stools, blood in the urine or in vomit breathing problems changes in vision chest pain general ill feeling or flu-like symptoms nausea or vomiting redness, blistering, peeling or loosening of the skin, including inside the mouth slurred speech or weakness on one side of the body stomach pain unexplained weight gain or swelling unusually weak or tired yellowing of eyes or skin Side effects that usually do not require medical attention (report to your doctor or health vp care management if they continue or are bothersome): constipation or diarrhea dizziness gas or heartburn stomach upset What may interact with this medicine? Do not take this medicine with any of the following medications: cidofovir ketorolac methotrexate pemetrexed This medicine may also interact with the following medications: alcohol aspirin diuretics lithium other drugs for inflammation like prednisone warfarin What if I miss a dose? If you miss a dose, take it as soon as you can. If it is almost time for your next dose, take only that dose. Do not take double or extra doses. Where should I keep my medicine? Keep out of the reach of children. Store at room temperature between 15 and 30 degrees C (59 and 86 degrees F). Keep container tightly closed. Throw away any unused medicine after the expiration date. What should I tell my health care provider before I take this medicine? They need to know if you have any of these conditions: asthma cigarette smoker drink more than 3 alcohol containing drinks a day heart disease or circulation problems such as heart failure or leg edema (fluid retention) high blood pressure kidney disease liver disease stomach bleeding or ulcers an unusual or allergic reaction to ibuprofen, aspirin, other NSAIDS, other medicines, foods, dyes, or preservatives or trying to get breast-feeding What should I watch for while using this medicine? Tell your doctor or healthcare professional if your symptoms do not start to get better or if they get worse. This medicine does not prevent heart attack or stroke. In fact, this medicine may increase the chance of a heart attack or stroke. The chance may increase with longer use of this medicine and in people who have heart disease. If you take aspirin to prevent heart attack or stroke, talk with your doctor or health vp care management. Do not take other medicines that contain aspirin, ibuprofen, or naproxen with this medicine. Side effects such as stomach upset, nausea, or ulcers may be more likely to occur. Many medicines available without a prescription should not be taken with this medicine. This medicine can cause ulcers and bleeding in the stomach and intestines at any time during treatment. Ulcers and bleeding can happen without warning symptoms and can cause . To reduce your risk, do not smoke cigarettes or drink alcohol while you are taking this medicine. You may get drowsy or dizzy. Do not drive, use machinery, or do anything that needs mental alertness until you know how this medicine affects you. Do not stand or sit up quickly, especially if you are an older patient. This reduces the risk of dizzy or fainting spells. This medicine can cause you to bleed more easily. Try to avoid damage to your teeth and gums when you brush or floss your teeth. Clindamycin Hydrochloride Oral capsule What is this medicine? CLINDAMYCIN (KLIN da MYE sin) is a lincosamide antibiotic. It is used to treat certain kinds of bacterial infections. It will not work for colds, flu, or other viral infections. How should I use this medicine? Take this medicine by mouth with a full glass of water. Follow the directions on the prescription label. You can take this medicine with food or on an empty stomach. If the medicine upsets your stomach, take it with food. Take your medicine at regular intervals. Do not take your medicine more often than directed. Take all of your medicine as directed even if you think your are better. Do not skip doses or stop your medicine early. Talk to your sales agent casualty insurance regarding the use of this medicine in children. Special care may be needed. What side effects may I notice from receiving this medicine? Side effects that you should report to your doctor or health vp care management as soon as possible: allergic reactions like skin rash, itching or hives, swelling of the face, lips, or tongue dark urine pain on swallowing redness, blistering, peeling or loosening of the skin, including inside the mouth unusual bleeding or bruising unusually weak or tired yellowing of eyes or skin Side effects that usually do not require medical attention (report to your doctor or health vp care management if they continue or are bothersome): diarrhea itching in the rectal or genital area joint pain nausea, vomiting stomach pain What may interact with this medicine? chloramphenicol erythromycin kaolin products What if I miss a dose? If you miss a dose, take it as soon as you can. If it is almost time for your next dose, take only that dose. Do not take double or extra doses. Where should I keep my medicine? Keep out of the reach of children. Store at room temperature between 20 and 25 degrees C (68 and 77 degrees F). Throw away any unused medicine after the expiration date. What should I tell my health care provider before I take this medicine? They need to know if you have any of these conditions: kidney disease liver disease stomach problems like colitis an unusual or allergic reaction to clindamycin, lincomycin, or other medicines, foods, dyes like tartrazine or preservatives or trying to get breast-feeding What should I watch for while using this medicine? Tell your doctor or healthcare professional if your symptoms do not start to get better or if they get worse. Do not treat diarrhea with over the counter products. Contact your doctor if you have diarrhea that lasts more than 2 days or if it is severe and watery. Penicillin V Potassium Oral tablet What is this medicine? PENICILLIN V (pen i SILL in V) is a penicillin antibiotic. It is used to treat certain kinds of bacterial infections. It will not work for colds, flu, or other viral infections. How should I use this medicine? Take this medicine by mouth with a full glass of water. Follow the directions on the prescription label. Take your medicine at regular intervals. Do not take your medicine more often than directed. Take all of your medicine as directed even if you think your are better. Do not skip doses or stop your medicine early. Talk to your sales agent casualty insurance regarding the use of this medicine in children. While this drug may be prescribed for selected conditions, precautions do apply. What side effects may I notice from receiving this medicine? Side effects that you should report to your doctor or health vp care management as soon as possible: allergic reactions like skin rash or hives, swelling of the face, lips, or tongue breathing problems fever new symptoms of infection redness, blistering, peeling or loosening of the skin, including inside the mouth unusually weak or tired Side effects that usually do not require medical attention (report to your doctor or health vp care management if they continue or are bothersome): diarrhea headache nausea, vomiting sore mouth or tongue stomach upset What may interact with this medicine? control pills methotrexate other antibiotics probenecid some vaccines What if I miss a dose? If you miss a dose, take it as soon as you can. If it is almost time for your next dose, take only that dose. Do not take double or extra doses. Where should I keep my medicine? Keep out of the reach of children. Store at room temperature between 15 and 30 degrees C (59 and 86 degrees F). Keep container tightly closed. Throw away any unused medicine after the expiration date. What should I tell my health care provider before I take this medicine? They need to know if you have any of these conditions: asthma bowel disease, like colitis eczema kidney disease an unusual or allergic reaction to penicillin, cephalosporins, other antibiotics or medicines, foods, tartrazine or other dyes, or preservatives or trying to get breast-feeding What should I watch for while using this medicine? Tell your doctor or health vp care management if your symptoms do not improve. Do not treat diarrhea with over the counter products. Contact your doctor if you have diarrhea that lasts more than 2 days or if it is severe and watery. If you have diabetes, you may get a false-positive result for sugar in your urine. Check with your doctor or health vp care management. control pills may not work properly while you are taking this medicine. Talk to your doctor about using an extra method of control. Fluconazole Oral tablet What is this medicine? FLUCONAZOLE (floo ANTONELLA na zole) is an antifungal medicine. It is used to treat certain kinds of fungal or yeast infections. How should I use this medicine? Take this medicine by mouth. Follow the directions on the prescription label. Do not take your medicine more often than directed. Talk to your sales agent casualty insurance regarding the use of this medicine in children. Special care may be needed. This medicine has been used in children as young as 6 months of age. What side effects may I notice from receiving this medicine? Side effects that you should report to your doctor or health vp care management as soon as possible: allergic reactions like skin rash or itching, hives, swelling of the lips, mouth, tongue, or throat dark urine feeling dizzy or faint irregular heartbeat or chest pain redness, blistering, peeling or loosening of the skin, including inside the mouth trouble breathing unusual bruising or bleeding vomiting yellowing of the eyes or skin Side effects that usually do not require medical attention (report to your doctor or health vp care management if they continue or are bothersome): changes in how food tastes diarrhea headache stomach upset or nausea What may interact with this medicine? Do not take this medicine with any of the following medications: cisapride pimozide red yeast rice This medicine may also interact with the following medications: control pills cyclosporine diuretics like hydrochlorothiazide medicines for diabetes that are taken by mouth medicines for high cholesterol like atorvastatin, lovastatin or simvastatin phenytoin ramelteon rifabutin rifampin some medicines for anxiety or sleep tacrolimus terfenadine theophylline tofacitinib warfarin What if I miss a dose? If you miss a dose, take it as soon as you can. If it is almost time for your next dose, take only that dose. Do not take double or extra doses. Where should I keep my medicine? Keep out of the reach of children. Store at room temperature below 30 degrees C (86 degrees F). Throw away any medicine after the expiration date. What should I tell my health care provider before I take this medicine? They need to know if you have any of these conditions: electrolyte abnormalities history of irregular heart beat kidney disease an unusual or allergic reaction to fluconazole, other azole antifungals, medicines, foods, dyes, or preservatives or trying to get breast-feeding What should I watch for while using this medicine? Visit your doctor or health vp care management for regular checkups. If you are taking this medicine for a long time you may need blood work. Tell your doctor if your symptoms do not improve. Some fungal infections need many weeks or months of treatment to cure. Alcohol can increase possible damage to your liver. Avoid alcoholic drinks. If you have a vaginal infection, do not have sex until you have finished your treatment. You can wear a sanitary napkin. Do not use tampons. Wear freshly washed cotton, not synthetic, panties. You have been given the following additional information: Laceration, Extrem (Suture, Staple, Or Tape) Laceration, Tendon Laceration, Tendon Ondansetron Oral disintegrating tablet Cephalexin Monohydrate Oral tablet Hydrocodone Bitartrate, Acetaminophen Oral tablet Ibuprofen Oral tablet Clindamycin Hydrochloride Oral capsule Penicillin V Potassium Oral tablet Fluconazole Oral tablet (Electronically signed by Grace Gaston A.R.N.P. 09/03/2016 0:14)
== END 2016-09-02 23:04 | disposition home or self-care (01) ==
LOC: ED SRH 17:46
DX: S61.222A Laceration with foreign body of right middle finger without damage to nail, initial encounter (principal); S61.421A Laceration with foreign body of right hand, initial encounter; S66.124A Laceration of flexor muscle, fascia and tendon of right ring finger at wrist and hand level, initial encounter; S66.126A Laceration of flexor muscle, fascia and tendon of right little finger at wrist and hand level, initial encounter; W29.3XXA Contact with powered garden and outdoor hand tools and machinery, initial encounter; Y93.89 Activity, other specified; Y92.009 Unspecified place in unspecified non-institutional (private) residence as the place of occurrence of the external cause; Y99.9 Unspecified external cause status; I10 Essential (primary) hypertension; Z88.2 Allergy status to sulfonamides